=== PATIENT | male | born 1960 | race Caucasian/White ===

== ENCOUNTER 2021-02-22 13:14 | Emergency (ER) | payer OTHER, SELFPAY ==
[2021-02-22 13:25] VITALS: BP 140/87; PULSE 71; RESP 16; TEMP 36.7; O2SAT 98
[2021-02-22 13:32] VITALS: BP 140/87; PULSE 71; RESP 16; TEMP 36.7; O2SAT 98
--- NOTE | 2021-02-22 13:34 | ED.WOUNDLAC ---
HPI - Wound/Laceration General Chief Complaint: Wound/Laceration Stated Complaint: cut right thumb Time Seen by Provider: 02/22/21 13:35 Source: patient and RN notes reviewed Mode of arrival: ambulatory Limitations: no limitations History of Present Illness HPI narrative: 60-year-old male presents with concern for puncture wound to the first digit of the right hand that he sustained an hour and a half ago at work on a metal wire. He reports small amount of bleeding, reports of bleeding is now well controlled. He denies any numbness, tingling, swelling, redness, pain. Reports he is not up-to-date on his tetanus vaccination. Extremity Location: Right: hand Related Data Home Medications Medication Instructions Recorded Confirmed No Home Medications 02/22/21 02/22/21 Allergies Allergy/AdvReac Type Severity Reaction Status Date / Time No Known Allergies Allergy Mild Unverified 01/25/04 11:07 Review of Systems Review of Systems: CONSTITUTIONAL: Denies malaise, chills, sweats, or fever. SKIN: Reports puncture wound to the first digit of the right hand MUSCULOSKELETAL: Denies muscle skeletal pain NEUROLOGIC: Denies numbness, weakness, All systems reviewed & are unremarkable except as noted in HPI and below PMFSH Comments At time of signature, agree with nursing past medical, surgical, social and family history. There is no relevant family history pertinent to the presenting complaint Exam Narrative: GENERAL: Well-appearing, well-nourished, and in no acute distress. HEAD: Normocephalic, atraumatic. EYES: PERRLA, conjunctivae clear ENT: Mucous membranes moist. NECK: Supple. No lymphadenopathy CHEST: Clear to auscultation. No respiratory distress. HEART: Regular rate and rhythm. SKIN: Warm, dry. No visible puncture wound noted to the right first digit, small amount of dried blood noted. NEURO: Alert and oriented x3. PSYCH: Normal mood and affect Course Course Emergency Course: Patient is aware of diagnosis, understands and agrees to treatment plan. Anticipatory guidance given. Patient agrees to follow-up as directed and is aware of reasons to seek care at the emergency department. Portions of this record may have been created with voice recognition software Vital Signs Vital signs: Vital Signs Temperature 98.0 F 02/22/21 13:25 Pulse Rate 71 02/22/21 13:25 Respiratory Rate 16 02/22/21 13:25 Blood Pressure 140/87 02/22/21 13:25 Pulse Oximetry 98 02/22/21 13:25 Temperature 98.0 F 02/22/21 13:32 Pulse Rate 71 02/22/21 13:32 Respiratory Rate 16 02/22/21 13:32 Blood Pressure 140/87 02/22/21 13:32 Pulse Oximetry 98 02/22/21 13:32 Reviewed. Pt has been instructed to follow up with his primary care provider within the next week regarding his elevated blood pressure today. MDM - Wound/Laceration MDM Narrative Medical decision making narrative: Exam findings show no acute concerns or changes; patient is non-toxic appearing and is in no distress. Patient is appropriate for outpatient treatment and follow-up. Differential Diagnosis Differential diagnosis: Likely laceration, abrasion, avulsion of skin and other Critical Care Time Critical Care Time Critical Care Time: No Discharge Plan Discharge Clinical Impression: Puncture wound Patient Disposition: Home, Self-Care Condition: Stable Instructions: Antibiotic Form, Puncture Wound (ED) Additional Instructions: Keep wound clean, and dry. Apply antibiotic ointment twice daily. Cover with bandage as needed to prevent contamination. Clean with soap and water twice daily. Do not clean with hydrogen peroxide. If any signs of infection such as redness, swelling, increasing pain, drainage of purulent discharge, streaks up your extremity develop, seek medical attention immediately. Your blood pressure was elevated above 120/80 today at [facility]. This puts you above the threshold for follow up. Please schedule a follow
[2021-02-22] MEDS: TETANUS,DIPHTHERIA,AC PERTUSSIS ADULT (0.5 ML) BOOSTRIX IM (13:46)
== END 2021-02-22 13:55 | disposition home or self-care (01) ==
PROVIDERS: Emergency Provider Nurse Practitioner
DX: S61.031A Puncture wound without foreign body of right thumb without damage to nail, initial encounter (principal); W45.8XXA Other foreign body or object entering through skin, initial encounter; Z23 Encounter for immunization
CPT/HCPCS: 90471; 90715; 99212; G0463

== ENCOUNTER 2023-06-27 08:04 | Emergency (ER) | payer BC, SELFPAY ==
--- NOTE | 2023-06-27 08:09 | ED.GENADULT ---
HPI - General Adult General Chief complaint: Shortness of Breath/Dyspnea Stated complaint: SOB Source: patient, RN notes reviewed and old records reviewed Mode of arrival: ambulatory Limitations: no limitations History of Present Illness HPI narrative: 62-year-old male patient presents to [facility] with complaint of shortness of breath for about 1 week. Patient states shortness breath is worse with exertion. Patient denies cough, congestion, illness. Patient states has had some chest tightness on and off for the past week. Patient has not taken anything for symptoms. Patient does not have primary care physician. MD complaint: SOB Onset (ago): week(s) (1) Related Data Home Medications Medication Instructions Recorded Confirmed No Home Medications 02/22/21 06/27/23 Allergies Allergy/AdvReac Type Severity Reaction Status Date / Time No Known Allergies Allergy Mild Verified 06/27/23 08:06 Review of Systems Constitutional: Constitutional: Reports no additional constitutional complaints, Denies body ache(s), Denies chills, Denies fatigue, Denies fever(s) and Denies headache(s) Eyes: Eyes: Reports no additional eye complaints and Denies blurry vision ENT: Reports system reviewed and no additional complaints, except as documented, Denies vertigo, Denies dizziness, Denies ear discharge, Denies otalgia, Denies facial pain, Denies headache(s), Denies nasal congestion, Denies nasal discharge, Denies sinus pain, Denies sinus pressure and Denies sore throat Cardiovascular: Cardiovascular: Reports no additional cardiovascular complaints, Denies chest pain, Denies chest pain at rest, Denies rapid heart rate and Reports dyspnea Comments: Chest tightness on and off for 1 week Respiratory: Respiratory: Reports no additional respiratory complaints, Denies chest congestion, Denies cough, Denies pain on inspiration, Denies pain with cough, Reports dyspnea and Reports dyspnea on exertion Gastrointestinal: Gastrointestinal: Denies abdominal pain, Denies diarrhea, Denies nausea and Denies vomiting Integumentary/Breasts: Skin/Breast: Denies rash Neurologic: Reports system reviewed and no additional complaints, except as documented, Denies vertigo, Denies dizziness and Denies headache(s) Endocrine: Endocrine: Denies fatigue PMFSH Comments At the time of my signature, I reviewed and agree with the nursing past medical, surgical, social, and family history. There is no relevant family history pertinent to the patient complaint. Exam Const: General: cooperative, healthy appearing, no acute distress and well nourished Nutritional Appearance: well nourished Orientation/consciousness: patient oriented x3 Limitations: no limitations HENMT: Head: normal to inspection and normocephalic Ears: external ears normal, TM's normal bilaterally, mastoids normal and Abnormal EAC present Face/Nose/Sinus: normal facial exam Face and sinus: normal facial exam Mouth: Yes Normal oral and palatal mucosa present, Yes oropharynx normal and Yes moist mucous membranes Throat: posterior oropharynx normal, tonsils normal, uvula midline and no uvular edema Eyes: General: appearance normal, both eyes and all related structures Sclera: sclerae normal Pupils: Equal, round and reactive pupils present Resp: Effort & Inspection: normal respiratory effort, able to speak in complete sentences, no audible wheezes, no cough, not labored, no pursed lip breathing, no respiratory distress, no retractions and not tachypneic Auscultation: clear to auscultation bilaterally, no crackles, no rales, no rhonchi and no wheezes Cardio: Rate: tachycardic Rhythm: abnormal rhythm irregularly irregular Skin: General skin exam: normal color and no rashes or lesions noted Neuro: General: patient oriented x3 Cranial nerves: Yes Equal, round and reactive pupils present Psych: Appearance: grossly normal Mental Status: mental status grossly normal Speech and movement: Normal s
[2023-06-27 08:19] VITALS: BP 129/102; PULSE 85; RESP 20; TEMP 36.6; O2SAT 100
[2023-06-27 08:22] VITALS: PULSE 147; RESP 24
--- NOTE | 2023-06-27 08:24 | ECG_ITS ---
Measurements Intervals [place] Rate: 153 P: TN: 0 QRS: 85 QRSD: 83 T: 240 QT: 296 QTc: 473 Interpretive Statements ATRIAL FIBRILLATION WITH RAPID VENTRICULAR RESPONSE VENTRICULAR PREMATURE COMPLEX CANNOT RULE OUT SEPTAL INFARCT, AGE INDETERMINATE T WAVE ABNORMALITY IN LATERAL LEADS- CONSIDER ISCHEMIA BASELINE ARTIFACT- I, II, III, AVR, AVL, AVF ABNORMAL ECG NO PREVIOUS ECG AVAILABLE FOR COMPARISON Electronically Signed On 06-27-2023 12:55:35 ENROBING MACHINE FEEDER by Beni Puentes D.O.
== END 2023-06-27 08:42 | disposition short-term general hospital (02) ==
PROVIDERS: Emergency Provider Registered Nurse
DX: I48.91 Unspecified atrial fibrillation (principal); R06.02 Shortness of breath; Z20.822 Contact with and (suspected) exposure to COVID-19; Z87.891 Personal history of nicotine dependence
CPT/HCPCS: 87426; 87804; 93005; 99215; G0463

== ENCOUNTER 2023-06-27 09:03 | Inpatient (IN) | payer BC, SELFPAY ==
[2023-06-27] VITALS (16 sets, daily range): BP systolic 106–125; BP diastolic 73–98; PULSE 106–174; RESP 16–18; TEMP 36.3–36.8; O2SAT 90–98; BMI 27.6
--- NOTE | ~2023-06-27 | XR_ITS ---
Portable chest x-ray Comparison: 01/25/2004 Clinical History: Dyspnea Findings: Lungs are clear, without focal consolidation or pleural effusion. Cardiomediastinal silho uette is stable. Bones and soft tissues are unremarkable. Impression: Clear lungs. Reviewed, dictated and finalized at location . THCARE NETWORK PRICING CONSULTANT Impression: Clear lungs.
--- NOTE | ~2023-06-27 | US_ITS ---
EXAMINATION: US venous doppler [facility] DATE: 06/27/2023 19:10 INDICATION: Chest pain. TECHNIQUE: Grayscale ultrasound images without and with compression and Doppler ultrasound images of the bilateral lower extremity veins were obtained. COMPARISON: None. FINDINGS: The visualized portions of right common femoral vein, profunda (deep) femoral vein, femoral vein, pop liteal vein, peroneal veins, posterior tibial veins, and greater saphenous vein outflow are patent. The visualized portions of left common femoral vein, profunda femoral vein, femoral vein, popliteal v ein, peroneal veins, posterior tibial veins, and greater saphenous vein outflow are patent. IMPRESSION: 1. No deep venous thrombosis. Reviewed, dictated and finalized at location E. DHOUSE SUPERVISOR
--- NOTE | ~2023-06-27 | CT_ITS ---
EXAMINATION: CTA chest PE abdomen pel DATE: 06/27/2023 10:23 INDICATION: Chest pain, shortness of breath, elevated d-dimer. TECHNIQUE: Computed tomography (CT) pulmonary angiogram of the chest was performed with 100 mL Omnipa que-350 intravenous contrast. Additional 3D reconstructions utilizing coronal maximum intensity proje ction (MIP) were performed. CT of the abdomen and pelvis was performed with intravenous contrast util izing the same contrast bolus following a short delay. Automated exposure control and iterative recon struction technique were employed. The dose-length product was 828.52 mGy-cm. COMPARISON: None FINDINGS: Chest: No pulmonary embolism. Small bilateral pleural effusions with dependent atelectasis in bilateral lowe r lobes. Mild smooth septal line thickening at the bilateral lung bases consistent with minimal pulmo nary edema. Borderline heart size. No pericardial effusion. Thoracic aorta is normal in caliber. No p athologically enlarged thoracic lymphadenopathy. There is reflux of contrast into the inferior vena c rashid and hepatic veins consistent with tricuspid regurgitation. Moderate thoracic spondylosis with chr onic appearing minimal to mild anterior wedging of a few mid to lower thoracic vertebral bodies. Abdomen/pelvis: Focal hepatic steatosis at the ligamentum teres. Gallbladder, spleen, pancreas, bilateral adrenal gla nds and right kidney are normal. Small focus of cortical scarring at the upper pole of the left kidne y likely sequela prior infection or infarction. Bowels including the appendix are normal. Bladder is normal. Prostatomegaly. No free intraperitoneal gas or fluid. No pathologically enlarged abdominal or pelvic lymphadenopathy. Postoperative change of bilateral inguinal hernia repairs. Mild lumbar dextr ocurvature with moderate spondylosis. Mild to moderate bilateral hip osteoarthritis. IMPRESSION: 1. No pulmonary embolism. 2. Minimal bibasilar pulmonary edema and small bilateral pleural effusions. 3. Borderline heart size with reflux of contrast into the inferior vena cava and hepatic veins consis tent with tricuspid regurgitation. 4. No acute intra-abdominal/pelvic process. Reviewed, dictated and finalized at location A. RTER OR EXPORTER IMPRESSION: 1. No pulmonary embolism. 2. Minimal bibasilar pulmonary edema and small bilateral pleural effusions. 3. Borderline heart size with reflux of contrast into the inferior vena cava an d hepatic veins consistent with tricuspid regurgitation. 4. No acute intra-abdominal/pelvic process.
--- NOTE | 2023-06-27 09:06 | ECG_ITS ---
Measurements Intervals [place] Rate: 165 P: TN: 0 QRS: 64 QRSD: 89 T: 180 QT: 275 QTc: 456 Interpretive Statements ATRIAL FIBRILLATION WITH RAPID VENTRICULAR RESPONSE VENTRICULAR PREMATURE COMPLEXES CANNOT RULE OUT SEPTAL INFARCT, AGE INDETERMINATE ST-T WAVE ABNORMALITY IN LATERAL LEADS- CONSIDER ISCHEMIA ABNORMAL ECG NO PREVIOUS ECG AVAILABLE FOR COMPARISON Electronically Signed On 06-27-2023 9:40:57 TELECOMMUNICATIONS NETWORK ENGINEER by Beni Puentes D.O.
--- NOTE | 2023-06-27 09:13 | ED.SOB ---
HPI - SOB/Dyspnea General Chief Complaint: Shortness of Breath/Dyspnea <Stacia Block PA-C - Last Filed: 06/27/23 12:53> Stated Complaint: sob <KUSH Moore Last Filed: 06/27/23 12:53> Time Seen by Provider: 06/27/23 09:06 <KUSH Moore Last Filed: 06/27/23 12:53> Source: patient <KUSH Moore Last Filed: 06/27/23 12:53> Mode of arrival: EMS <KUSH Moore Last Filed: 06/27/23 12:53> Limitations: no limitations <KUSH Moore Last Filed: 06/27/23 12:53> History of Present Illness HPI Narrative: This is a 62-year-old male that presents to the emergency department for dyspnea ongoing over the last week. Worse with exertion. Does report intermittent chest tightness. He was seen in urgent care and sent to the ER for further evaluation as he was noted to be in atrial fibrillation with rapid ventricular rate. This is a new diagnosis for the patient. Denies palpitations or lower extremity edema. <KUSH Moore Last Filed: 06/27/23 12:53> Related Data Home Medications: Home Medications Medication Instructions Recorded Confirmed No Home Medications 02/22/21 06/27/23 <KUSH Moore Last Filed: 06/27/23 12:53> Allergies/Adverse Reactions: Allergies Allergy/AdvReac Type Severity Reaction Status Date / Time No Known Allergies Allergy Mild Verified 06/27/23 08:06 <KUSH Moore Last Filed: 06/27/23 12:53> Review of Systems Review of Systems: CONSTITUTIONAL: Denies fever CARDIOVASCULAR: Reports chest pain. Denies palpitations, or edema. RESPIRATORY: Reports dyspnea. <KUSH Moore Last Filed: 06/27/23 12:53> All systems reviewed & are unremarkable except as noted in HPI and below <KUSH Moore Last Filed: 06/27/23 12:53> PMFSH Past Medical History Medical History: Medical History No active medical problems <Stacia Block PA-C - Last Filed: 06/27/23 12:53> Family History Family History: Family History Father Diabetes mellitus <Stacia Block PA-C - Last Filed: 06/27/23 12:53> Social History Social History: Social History Smoking packs per day: 1 Smoking cigarettes per day: 20.0 Years smoked: 20 Smoking pack-years: 20.00 Smoking status: Former smoker Alcohol intake: former Substance use: former Substance use type: marijuana Last use: 04/25/23 Do You Feel Safe in your Home?: Yes Lack of Transportation: No Lack of Food: Never True Current Housing: I Have Housing Concerned About Future Housing: No Difficulty Paying Gas/Electric Bills: No Difficulty Paying for Meds: No Currently Unemployed: No Education: High School Diploma/GED Difficulty w/ Childcare or Family Care: No Spiritual care concerns: No <Stacia Block PA-C - Last Filed: 06/27/23 12:53> Exam Narrative: GENERAL: Well-appearing, well-nourished, and in no acute distress. HEAD: Normocephalic, atraumatic. EYES: EOMI. ENT: Mucous membranes moist. Oropharynx without tonsillar hypertrophy exudate or other lesions. NECK: Supple. No adenopathy or masses. No JVD CHEST: Clear to auscultation. No respiratory distress. No wheezes rales or rhonchi HEART: Tachycardic. No murmur heard. Normal peripheral pulses. EXTREMITIES: Normal range of motion. No edema. SKIN: Warm, dry, no rash. NEURO: No focal deficits. Alert and oriented x3. PSYCH: Normal mood and affect <Stacia Block PA-C - Last Filed: 06/27/23 12:53> Course Course Emergency Course: Patient updated on his workup and agrees with plan of care <Stacia Block PA-C - Last Filed: 06/27/23 12:53> PRIMING MACHINE OPERATOR/PA Physician Supervision This visit was performed by both a physician and an APC. I perfor
[2023-06-27 09:25] LABS: Basophils Percent Auto 0.4 % (0.2-1.2); Eosinophils Percent Auto 0.4 % (0-4.4); Hematocrit 43.5 % (42.0-52.0); Hemoglobin 14.4 g/dL (14.0-18.0); Immature Granulocyte Absolute 0.03 K/mm3 (0.00-0.031); Immature Granulocyte Percent A 0.3 % (0-0.5); Lymphocytes Absolute Auto 2.89 K/mm3 (0.9-3.2); Lymphocytes Percent Auto 26.4 % (18.3-44.2); Mean Corpuscular HGB Conc 33.1 g/dl (32-36); Mean Corpuscular Hemoglobin 29.7 pg (26-34); Mean Corpuscular Volume 89.7 fl (80-100); Mean Platelet Volume 9.7 fl (7.4-10.4); Monocytes Absolute Auto 0.7 K/mm3 (0.1-0.6); Monocytes Percent Auto 6.2 % (2.6-8.5); Neutrophils Absolute Auto 7.3 K/mm3 (1.3-6.7); Neutrophils Percent Auto 66.3 % (45.5-73.1); Platelet Count Result 247 k/mm3 (150-375); Red Blood Count 4.85 M/mm3 (4.6-6.20); Red Cell Distribution Width 13.9 % (11.5-14.5)
[2023-06-27] MEDS: dilTIAZem HCl INJ 25 MG/5 ML VIAL 10 MG IV PUSH (09:26)
[2023-06-27] MEDS: dilTIAZem 100 MG/100 ML 100 MG/100 ML BAG IV CONT (09:27)
[2023-06-27 09:33] LABS: Alanine Aminotransferase 49 U/L (6-50); Albumin Level 3.8 g/dL (3.5-5.1); Alkaline Phosphatase 50 U/L (38-126); Anion Gap 11 mmol/L (8-16); Aspartate Amino Transferase 38 U/L (17-59); Blood Urea Nitrogen 22 mg/dL (9-20); Calcium 8.9 mg/dL (8.4-10.2); Carbon Dioxide 17 mmol/L (22-30); Chloride 110 mmol/L (98-107); Estimated CRCL calculation 65 ml/min; Estimated Glomerular Filt Rate > 60; Glucose 126 mg/dL (65-110); Potassium 4.5 mmol/L (3.4-5.0); Sodium 138 mmol/L (137-145)
[2023-06-27 09:36] LABS: INR 1.2; Prothrombin Time 15.8 Seconds (11.1-14.7)
[2023-06-27 09:37] LABS: Partial Thromboplastin Time 28.8 SECONDS (22.3-36.8)
[2023-06-27 09:48] LABS: Troponin I 0.705 ng/mL (0.000-0.034)
[2023-06-27 09:55] LABS: D Dimer > 20.00 ug/mL (<0.48)
[2023-06-27 11:45] LABS: NT Pro B Type Natriuretic Pept 6630 pg/mL (19.9-100)
--- NOTE | 2023-06-27 12:20 | ECHO_ITS ---
Patient Info Name: David Bingham Age: 62 years : 1960 Gender: Male Ht: 71 in Wt: 180 lbs BSA: 2.03 m2 HR: 126 bpm BP: 106 / 79 mmHg Heart Rhythm: Indeterminant Technical Quality: Good Exam Date: 06/27/2023 2:06 PM Exam Location: Echo Lab Patient Status: Outpatient Admit Date: 06/27/2023 Staff Ordering Physician: Stacia Block PA-C Drafter Plumbing: Reba Rodriguez RDCS Attending Provider: Madonna Jones MD Referring Physician: Umair SULLIVAN; Exam Type: CA echo doppler color flow Study Info Indications - ATRIAL FIB Complete two-dimensional, color flow and Doppler transthoracic echocardiogram is performed. Summary 1. Complete two-dimensional, color flow and Doppler transthoracic echocardiogram is performed. 2. Left ventricular chamber dimension is severely enlarged. 3. Left ventricular systolic function is severely reduced, estimated at 15-20%. 4. There is mildly increased left ventricular wall thickness. 5. The left ventricular diastolic function is abnormal. 6. Right ventricular chamber dimension is mildly enlarged. 7. Right ventricular systolic function is reduced. 8. Left atrial chamber dimension is severely enlarged. 9. Right atrial chamber dimension is moderately enlarged. 10. There is mild mitral valve regurgitation. 11. There is mild tricuspid valve regurgitation. 12. Mild pulmonary hypertension, estimated pulmonary arterial systolic pressure is 42 mmHg. 13. There is mild pulmonic regurgitation. Left Ventricle Left ventricular chamber dimension is severely enlarged. Left ventricular systolic function is severely reduced, estimated at 15-20%. There is mildly increased left ventricular wall thickness. The left ventricular diastolic function is abnormal. Right Ventricle Right ventricular chamber dimension is mildly enlarged. Right ventricular systolic function is reduced. Left Atria Left atrial chamber dimension is severely enlarged. Right Atria Right atrial chamber dimension is moderately enlarged. Atrial Septum Intact interatrial septum visualized by color flow imaging. Aortic Valve The aortic valve is trileaflet. There is mild aortic valve sclerosis. There is no aortic valve stenosis. There is trace aortic valve regurgitation. Pulmonic Valve The pulmonic valve is normal. There is no pulmonic valve stenosis. There is mild pulmonic regurgitation. Mitral Valve The mitral valve has normal leaflets. There is no mitral valve stenosis. There is mild mitral valve regurgitation. Tricuspid Valve The tricuspid valve leaflets are normal. There is no significant tricuspid valve stenosis. There is mild tricuspid valve regurgitation. Mild pulmonary hypertension, estimated pulmonary arterial systolic pressure is 42 mmHg. Pericardium/Pleural The pericardium appears normal. There is trivial pericardial effusion. Inferior Vena Cava Dilated inferior vena cava with <50% collapse upon inspiration consistent with elevated right atrial pressure, 15 mmHg. Aorta The aortic root size at the sinus of Valsalva is mildly dilated. Left Ventricular Outflow Tract Name Value Normal LVOT 2D LVOT Diameter 2.1 cm LVOT Doppler LVOT Peak Gradient 3 mmHg
--- NOTE | 2023-06-27 12:20 | PM.IMHP ---
H&P: HPI History of Present Illness Date/Time: 06/27/23 12:20 Chief Complaint: SOB Narrative: 62 y/o M presents here with SOB and intermittent chest discomfort with no PMH. Patient presented here with SOB that worsened with exertion and would be alleviated with rest. Started approximately 10 days ago. Initially was mild and he first noted it while he was loading firewood, then progressed to effecting activities like bending over to tie his shoes. Associated chest discomfort intermittently, not as associated with activity. Chest discomfort was left-sided, non-radiating, and not associated N/V/diaphoresis. Patient started taking cough and cold medication to treat, initially believed symptoms were due to a viral illness, and symptoms did not improve/resolve. Denies any palpitations, syncope, or rapid heart beat. No prepherial edema, abdomninal distention, or recent weight gain. No previous medical history or daily medications. No FH of genetic disorders, cancers, or early heart disease. Former smoker (cessation 15 years ago). ETOH: former use was heavy, now drinks a beer every 3 months or so. Initial VS: HR 147, RR 24, BP 129/102, 100% on room air, and afebrile. ED workup showed mild leukocytosis with WBC of 11.0, PT 15.8, D-dimer greater than 20, creatinine 0.0 troponin 0.705, BNP 6630, and negative for COVID. CXR showed clear lungs. CTA of the chest/abdomen/pelvis showed no PE, minimal bibasilar pulmonary edema and small bilateral pleural effusions borderline heart size with reflux contrast into the IVC and hepatic veins consistent tricuspid regurgitation, no acute intra-abdominal/ pelvic process. EKG shows AFib RVR with rate of 165 and ventricular premature complexes upon arrival. Review of Systems Review of Systems: All systems reviewed & are unremarkable except as noted in HPI and below PMFSH Past Medical History Medical History No active medical problems Family History Family History Father Diabetes mellitus Social History Social History Smoking packs per day: 1 Smoking cigarettes per day: 20.0 Years smoked: 20 Smoking pack-years: 20.00 Smoking status: Former smoker Alcohol intake: former Substance use: former Substance use type: marijuana Last use: 04/25/23 Do You Feel Safe in your Home?: Yes Lack of Transportation: No Lack of Food: Never True Current Housing: I Have Housing Concerned About Future Housing: No Difficulty Paying Gas/Electric Bills: No Difficulty Paying for Meds: No Currently Unemployed: No Education: High School Diploma/GED Difficulty w/ Childcare or Family Care: No Spiritual care concerns: No Meds Home Medications and Allergies Home Medications Medication Instructions Recorded Confirmed Type No Home Medications 02/22/21 06/27/23 History Allergies Allergy/AdvReac Type Severity Reaction Status Date / Time No Known Allergies Allergy Mild Verified 06/27/23 08:06 Vital Signs Vital Signs - 24 hr 06/27/23 09:03 06/27/23 09:27 06/27/23 10:36 Temperature 98.2 F Pulse Rate 174 H 153 H 126 H Respiratory Rate 17 18 Blood Pressure 117/98 H 117/98 H 106/79 Pulse Oximetry 95 96 Oxygen Delivery Room Air Exam Const: General: comfortable and no acute distress Other: non-toxic appearance, , male. HENMT: Face/Nose/Sinus: Normal nares present Mouth: Yes moist mucous membranes Eyes: General: appearance normal, both eyes and all related structures Sclera: sclerae normal Pupils: Equal, round and reactive pupils present EOM: EOMs intact bilaterally Other: 2-3 mm bilaterally. Resp: Effort & Inspection: normal respiratory effort Other: crackles at R lung base. No wheezing or accessory muscle use. Cardio: Rate: tachycardic Rhythm: abnormal
[2023-06-27 12:59] LABS: Troponin I 0.686 ng/mL (0.000-0.034)
--- NOTE | 2023-06-27 13:37 | ADMGEN ---
This patient, David Bingham, was admitted to IMU Room 205-02. Patient/family oriented to hospital policies and general routines including ID bracelet, bed and alarms, visiting hours, pain management, procedures, bathroom and other care routines, personal items, smoking policy, room service/diet, and visiting hours. Information on how to activate the Rapid Response Team has been discussed. Patient/Family are encouraged to report perceived risks to care and to ask questions if they do not understand what they are told or what they should do.
[2023-06-27] MEDS: dilTIAZem HCl INJ 25 MG/5 ML VIAL 20 MG IV PUSH (14:03)
[2023-06-27] MEDS: dilTIAZem 100 MG/100 ML 100 MG/100 ML BAG 10 MG IV CONT (14:04)
--- NOTE | 2023-06-27 14:43 | PM.CNCAR ---
Assessment and Plan Assessment and plan (1) Atrial fibrillation with RVR: Code(s): I48.91 - Unspecified atrial fibrillation Status: Acute Assessment and Plan: This is a new diagnosis. I discussed the pathophysiology of atrial fibrillation and management strategies including rate control versus rhythm control. Discussed potential complications of atrial fibrillation including cardioembolic stroke risk. After discussing management options, patient would like to proceed with JUAN/CV tomorrow. 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 Will start Xarelto now. If he spontaneously converts, he would not require a/c as he has a CHADs2 Vasc score of 0. Echo has been ordered and will be reviewed. Further recommendations to follow (2) Exertional shortness of breath: Code(s): R06.02 - Shortness of breath Status: Acute Assessment and Plan: Secondary to above. He does have an elevated D dimer, but CTA negative for PE. Will check LE dopplers. (3) Elevated troponin: Code(s): R79.89 - Other specified abnormal findings of blood chemistry Status: Acute Assessment and Plan: Troponin levels 0.705, 0.686, and 0.680. Likely secondary to tachycardia, but cannot rule out underlying CAD. No plan for ischemia work up currently - await results of echo. If he has WMA or cardiomyopathy, then can consider inpatient ischemic eval. History of Present Illness History of Present Illness Consult date/time: 06/27/23 14:43 Requesting physician: Gladis Hood APRN Consult reason: atrial fibrillation Reason For Visit: atrial fibrillation with rapid ventricular respons Narrative: David Bingham is a 62-year-old male with no medical history. He comes to the hospital with a chief complaint of shortness of breath. He began to notice some shortness of breath with exertion starting about 10 days ago. The shortness of breath progressively got worse. He states that he could not even bend over to put his shoes on without becoming significantly short of breath. He did have some chest tightness associated with shortness of breath. He denies feeling any palpitations. He denies orthopnea, lower extremity swelling, syncope, or presyncope. He is in atrial fibrillation with rapid ventricular response and has been placed on a diltiazem drip. At the time of my visit with him he is lying comfortably in bed does not have any complaints. Review of Systems Review of Systems: All systems reviewed & are unremarkable except as noted in HPI and below PMFSH Past Medical History Medical History No active medical problems Family History Family History Father Diabetes mellitus Social History Social History Smoking packs per day: 1 Smoking cigarettes per day: 20.0 Years smoked: 20 Smoking pack-years: 20.00 Smoking status: Former smoker Alcohol intake: former Substance use: former Substance use type: marijuana Last use: 04/25/23 Do You Feel Safe in your Home?: Yes Lack of Transportation: No Lack of Food: Never True Current Housing: I Have Housing Concerned About Future Housing: No Difficulty Paying Gas/Electric Bills: No Difficulty Paying for Meds: No Currently Unemployed: No Education: High School Diploma/GED Difficulty w/ Childcare or Family Care: No Spiritual care concerns: No Meds Home Medications and Allergies Home Medications Medication Instructions Recorded Confirmed Type No Home Medications 02/22/21 06/27/23 History Allergies Allergy/AdvReac Type Severity Reaction Status Date / Time No Known Allergies Allergy Mild Verified 06/27/23 08:06 Vital Signs Vital Signs - 24 hr 06/27/23 09:03 06/27/23 09:27
[2023-06-27] MEDS: RIVAROXABAN 20 MG TABLET PO (17:23)
[2023-06-27] MEDS: dilTIAZem 100 MG/100 ML 100 MG/100 ML BAG 15 MG IV CONT (22:31)
[2023-06-28] VITALS (23 sets, daily range): BP systolic 96–115; BP diastolic 74–96; PULSE 13–116; RESP 18–34; TEMP 35.5–36.9; O2SAT 91–97
[2023-06-28] MEDS: dilTIAZem 100 MG/100 ML 100 MG/100 ML BAG 15 MG IV CONT (02:48)
[2023-06-28 05:02] LABS: Basophils Percent Auto 0.4 % (0.2-1.2); Eosinophils Percent Auto 0.3 % (0-4.4); Hematocrit 41.8 % (42.0-52.0); Hemoglobin 13.5 g/dL (14.0-18.0); Immature Granulocyte Absolute 0.03 K/mm3 (0.00-0.031); Immature Granulocyte Percent A 0.3 % (0-0.5); Mean Corpuscular HGB Conc 32.3 g/dl (32-36); Mean Corpuscular Hemoglobin 29.7 pg (26-34); Mean Corpuscular Volume 91.9 fl (80-100); Mean Platelet Volume 10.1 fl (7.4-10.4); Monocytes Absolute Auto 0.7 K/mm3 (0.1-0.6); Monocytes Percent Auto 6.4 % (2.6-8.5); Neutrophils Absolute Auto 6.9 K/mm3 (1.3-6.7); Neutrophils Percent Auto 64.6 % (45.5-73.1); Platelet Count Result 234 k/mm3 (150-375); Red Blood Count 4.55 M/mm3 (4.6-6.20); White Blood Count 10.7 K/mm3 (4.5-10.0)
[2023-06-28 05:44] LABS: Hemoglobin A1C 5.8 % (<5.7)
[2023-06-28 06:16] LABS: Anion Gap 10 mmol/L (8-16); Blood Urea Nitrogen 22 mg/dL (9-20); Calcium 8.8 mg/dL (8.4-10.2); Carbon Dioxide 19 mmol/L (22-30); Chloride 109 mmol/L (98-107); Cholesterol 129 mg/dL (0-200); Estimated CRCL calculation 72 ml/min; Estimated Glomerular Filt Rate > 60; Glucose 104 mg/dL (65-110); HDL Direct 33 mg/dL; Potassium 4.3 mmol/L (3.4-5.0); Sodium 138 mmol/L (137-145); Triglycerides 106 mg/dL (<150)
[2023-06-28 06:25] LABS: LDL Cholesterol Direct 83 mg/dL
--- NOTE | 2023-06-28 08:51 | ECG_ITS ---
Measurements Intervals [place] Rate: 95 P: NE: 0 QRS: 28 QRSD: 88 T: 211 QT: 395 QTc: 499 Interpretive Statements ATRIAL FIBRILLATION CANNOT RULE OUT SEPTAL INFARCT, AGE INDETERMINATE T WAVE ABNORMALITY IN ANTEROLATERAL LEADS- CONSIDER ISCHEMIA ABNORMAL ECG COMPARED TO ECG 06/27/2023 09:10:57 HEART RATE HAS DECREASED Electronically Signed On 06-28-2023 8:58:33 INVENTORY MANAGEMENT SPECIALIST by Beni Puentes D.O.
--- NOTE | 2023-06-28 09:00 | ECHO_ITS ---
Patient Info Name: David Bingham Age: 62 years : 1960 Gender: Male Ht: 68 in Wt: 181 lbs BSA: 2.00 m2 HR: 120 bpm BP: 121 / 89 mmHg Heart Rhythm: Atrial Fibrillation Technical Quality: Good Exam Date: 06/28/2023 9:14 AM Exam Location: Echo Lab Exam Room: IP ARCHITECT Patient Status: Outpatient Admit Date: 06/27/2023 Staff Ordering Physician: Stacey Traore Pool Attendant: Karissa Bullard RDCS Attending Provider: Madonna Jones MD Referring Physician: Eugenie JIMENEZ; Exam Type: CA echo transesophageal Study Info Indications - AFIB PRE CARDIOVERSION Complete two-dimensional, color flow and Doppler transesophageal study is performed. Summary 1. Limited JUAN done prior to a recommended cardioversion. 2. Dilated left atrium with large clot seen in left atrial appendage. 3. Normal appearing aortic and mitral valve. 4. Left ventricular dilation with severe global systolic dysfunction. Left Ventricle Left ventricular chamber dimension is mildly enlarged. Left ventricular systolic function is severely reduced with an ejection fraction by Biplane Method of Discs of Empty. Left Atria Left atrial chamber dimension is moderately enlarged. There is sessile thrombus visualized in the left atrium. Atrial Appendage There is sessile thrombus visualized in the left atrial appendage. Aortic Valve The aortic valve is normal. Mitral Valve The mitral valve has normal leaflets. Report Signatures
--- NOTE | 2023-06-28 09:28 | WPDCARDPROC ---
Cardiac Cath Procedure Note Date of procedure:: 06/28/23 Performing physician:: Valdo Meyer MD Indication:: Recent onset atrial fibrillation cardiomyopathy Brief clinical history:: this is a 62-year-old man without prior significant cardiac problems who entered the hospital yesterday with shortness of breath and was found to be in atrial fibrillation. Symptoms began approximately 2 weeks prior to presentation. JUAN cardioversion has been seen recommended and scheduled for this morning. Unfortunately echocardiogram also demonstrates severe cardiomyopathy. Procedure Procedure performed:: Transesophageal echocardiogram Sedation/Medication given:: sedation per the Anesthesia Service Estimated blood loss:: none Procedure note:: patient was brought to the cardiac catheterization lab anesthesia recovery area where he was in the postabsorptive state and placed in the supine position. The anesthesia service provided sedation. Please see their note for those details. prior to sedation the oropharynx was sprayed with benzocaine. Following sedation the esophagus was intubated with JUAN probe. Multiplanar JUAN images were performed I examining the left atrium and the appendage. Following this the JUAN probe was withdrawn and the procedure was terminated. Findings:: The left atrium is moderately dilated. The atrium was inspected in the appendage there was a large amount of thrombus filling the entire appendage. The mitral valve is normal in appearance the left ventricle is mildly dilated with severe global systolic hypokinesia. The aortic valve looks normal. There was no pericardial fluid. Conclusion:: Transesophageal echocardiogram imaging done prior to anticipated cardioversion demonstrates obvious left atrial appendage thrombus resulting and contraindication to cardioversion today. Valdo Meyer MD [facility]
--- NOTE | 2023-06-28 09:31 | PM.PNCARD ---
Progress Note: A&P Assessment and Plan (1) Atrial fibrillation with RVR: Code(s): I48.91 - Unspecified atrial fibrillation Status: Acute Plan 62-year-old man with newly diagnosed cardiomyopathy and atrial fibrillation. Abhay this morning demonstrates obvious thrombus in the left atrial appendage. Xarelto will be continued for systemic anticoagulation. I will transition him from diltiazem to metoprolol for both rate control and for treatment of his cardiomyopathy. While he is in the hospital we should also be starting ARNI and spironolactone if hemodynamically stable enough. Attempted cardioversion needs to be delayed at least 4 weeks and performed as an outpatient after he has been anticoagulated. Valdo Meyer MD [facility] Subjective Date/time seen: date of service:06/28/23 09:31 Interval history: 62-year-old man with: Newly recognized atrial fib felt to be of recent onset. Also newly diagnosed cardiomyopathy by echo that was done yesterday. Patient is relatively comfortable today and offers no significant complaints IV diltiazem is running heart rate is in the 110 range. Transesophageal echocardiogram images were done this morning in anticipation of cardioversion. Unfortunately there is a very large thrombus in the left atrial appendage contraindicating any attempt at cardioversion at this time. Exam Const: General: comfortable HENMT: Mouth: Yes moist mucous membranes Eyes: Sclera: sclerae normal Neck: Neck: supple Resp: Effort & Inspection: normal respiratory effort Other: scant basilar crackles noted Cardio: Rate: tachycardic Rhythm: abnormal rhythm irregularly irregular GI: GI Palp: Yes Soft to palpation Auscultation: normal bowel sounds Skin: General skin exam: normal color Neuro: Other: alert and oriented x3 Extrem: Other: no edema, good perfusion Objective Data Vital Signs Vital Signs: Vital Signs - 24 hr 06/27/23 10:36 06/27/23 12:35 06/27/23 12:50 Temperature 36.3 C L Pulse Rate 126 H 128 H 124 H Respiratory Rate 18 16 Blood Pressure 106/79 110/87 Pulse Oximetry 96 96 Oxygen Delivery 06/27/23 14:04 06/27/23 13:00 06/27/23 16:42 Temperature 36.6 C Pulse Rate 138 H 106 H Respiratory Rate 18 Blood Pressure 125/95 H Pulse Oximetry 98 Oxygen Delivery Room Air 06/27/23 16:00 06/27/23 16:00 06/27/23 18:00 Temperature Pulse Rate 116 H 113 H Respiratory Rate Blood Pressure Pulse Oximetry Oxygen Delivery Room Air 06/27/23 13:00 06/27/23 20:42 06/27/23 22:07 Temperature 36.7 C Pulse Rate 126 H 121 H 132 H Respiratory Rate 18 Blood Pressure 115/73 Pulse Oximetry 91 Oxygen Delivery 06/27/23 20:00 06/27/23 22:00 06/27/23 23:20 Temperature 36.4 C Pulse Rate 116 H 123 H 110 H Respiratory Rate 18 Blood Pressure 106/88 Pulse Oximetry 90 Oxygen Delivery 06/27/23 22:31 06/28/23 02:48 06/28/23 00:00 Temperature Pulse Rate 121 H 96 Respiratory Rate Blood Pressure Pulse Oximetry Oxygen Delivery Room Air 06/28/23 00:00 06/28/23 02:00 06/28/23 04:00 Temperature Pulse Rate 94 91 Respiratory Rate Blood Pressure Pulse Oximetry Oxygen Delivery Room Air 06/28/23 04:41 06/28/23 04:00 06/28/23 06:00 Temperature 36.4 C L Pulse Rate 90 93 85 Respiratory Rate 18 Blood Pressure 101/74 Pulse Oximetry 95 Oxygen Delivery 06/28/23 08:11 Temperature 36.9 C Pulse Rate 94 Respiratory Rate 20 Blood Pressure 102/77 Pulse Oximetry 95 Oxygen Delivery Intake/Output Intake/Output: Intake & Output 06/25/23 06/26/23 06/27/23 06/28/23 23:59 23:59 23:59 23:59 Intake Total 880 650 Output Total 550 400 Balance 330 250 Meds/Results Medications: Active Medications Generic Name Dose Route Start Last Admin Trade Name Freq PRN Reason Stop Dose Admin Diltiazem HCl 100 mg in 100 mls @ 15 mls/hr
[2023-06-28] MEDS: METOPROLOL SUCCINATE EXT REL 50 MG TABCR PO (10:37)
--- NOTE | 2023-06-28 11:25 | PM.IMPN ---
Progress Note: A&P Assessment and Plan (1) Atrial fibrillation with RVR: Code(s): I48.91 - Unspecified atrial fibrillation Status: Acute (2) Exertional shortness of breath: Code(s): R06.02 - Shortness of breath Status: Inactive Plan Patient presented with shortness of breath and intermittent chest discomfort. Over the past week or so. Chest discomfort left-sided nonradiating not associated with nausea vomiting diaphoresis. In the ER he was noted to have tachycardia with heart rate of 147 D-dimer greater than 20 troponin 0.705 BNP 6600 30[place] [address] chest x-ray clear lung CTA chest abdomen pelvis showed no PE minimal by basilar pulmonary edema and small bilateral pleural effusion borderline heart size with reflux contrast into the IVC and hepatic veins consistent tricuspid regurgitation no acute intra-abdominal or pelvic process. EKG showed AFib with RVR with a rate of 165. Was started on diltiazem drip echo ordered chest Vasc score 0. Started on Lovenox cardiology was consulted and status post JUAN which demonstrated thrombus in the left atrial appendage. Also noted to have cardiomyopathy for which she is getting started on AR and I and spironolactone cardioversion that was originally planned will be delayed after at least 4 weeks of anticoagulation. Now has been placed on Xarelto and metoprolol. Serial cardiac enzymes 0.705-0.680 TSH is normal LDL 83. Echo with EF 15-20% mild pulmonary hypertension mild MR mild TR mild RI Subjective Date/time seen: 06/28/23 11:25 Interval history: Patient presented with shortness of breath and intermittent chest discomfort. Over the past week or so. Chest discomfort left-sided nonradiating not associated with nausea vomiting diaphoresis. In the ER he was noted to have tachycardia with heart rate of 147 D-dimer greater than 20 troponin 0.705 [place]NP 6600 30[place] [address] chest x-ray clear lung CTA chest abdomen pelvis showed no PE minimal by basilar pulmonary edema and small bilateral pleural effusion borderline heart size with reflux contrast into the IVC and hepatic veins consistent tricuspid regurgitation no acute intra-abdominal or pelvic process. EKG showed AFib with RVR with a rate of 165. Was started on diltiazem drip echo ordered chest Vasc score 0. Started on Lovenox cardiology was consulted and status post JUAN which demonstrated thrombus in the left atrial appendage. Also noted to have cardiomyopathy for which she is getting started on AR and I and spironolactone cardioversion that was originally planned will be delayed after at least 4 weeks of anticoagulation. Review of Systems Review of Systems: All systems reviewed & are unremarkable except as noted in HPI and below Exam Narrative: GENERAL: Well-appearing, well-nourished, and in no acute distress. HEAD: Normocephalic, atraumatic. EYES: EOMI. ENT: Mucous membranes moist NECK: Supple. No adenopathy or masses. No JVD CHEST: Coarse breath sound. No respiratory distress. No wheezes rales or rhonchi HEART: Mildly tachycardic. AFib rhythm no murmur heard. Normal peripheral pulses. EXTREMITIES: Normal range of motion. No edema. SKIN: Warm, dry, no rash. NEURO: No focal deficits. Alert and oriented x3. PSYCH: Normal mood and affect Objective Data Vital Signs Vital Signs: Vital Signs - 24 hr 06/27/23 12:35 06/27/23 12:50 06/27/23 14:04 Temperature 97.3 F L Pulse Rate 128 H 124 H 138 H Respiratory Rate 16 Blood Pressure 110/87 Pulse Oximetry 96 Oxygen Delivery Oxygen Flow Rate 06/27/23 13:00 06/27/23 16:42 06/27/23 16:00 Temperature 97.8 F Pulse Rate 106 H Respiratory Rate 18 Blood Pressure 125/95 H Pulse Oximetry 98 Oxygen Delivery Room Air Room Air Oxygen Flow Rate 06/27/23 16:00 06/27/23 18:00 06/27/23 13:00 Temperature Pulse Rate 116 H 113 H 126 H Respiratory Rate Blood Pressure Pulse Oximetry Oxygen Delivery Oxygen F
[2023-06-28] MEDS: RIVAROXABAN 20 MG TABLET PO (17:14)
[2023-06-28] MEDS: dilTIAZem 100 MG/100 ML 100 MG/100 ML BAG 10 MG IV CONT (18:14)
[2023-06-29] VITALS (15 sets, daily range): BP systolic 90–112; BP diastolic 70–83; PULSE 85–109; RESP 16–24; TEMP 36–36.8; O2SAT 92–99
[2023-06-29] MEDS: dilTIAZem 100 MG/100 ML 100 MG/100 ML BAG 10 MG IV CONT (02:32)
[2023-06-29 04:53] LABS: Basophils Absolute Auto 0.1 K/mm3 (0.0-0.1); Basophils Percent Auto 0.5 % (0.2-1.2); Eosinophils Absolute Auto 0.1 K/mm3 (0-0.3); Eosinophils Percent Auto 0.5 % (0-4.4); Hematocrit 41.4 % (42.0-52.0); Hemoglobin 13.5 g/dL (14.0-18.0); Immature Granulocyte Absolute 0.04 K/mm3 (0.00-0.031); Immature Granulocyte Percent A 0.4 % (0-0.5); Lymphocytes Absolute Auto 2.85 K/mm3 (0.9-3.2); Lymphocytes Percent Auto 28.6 % (18.3-44.2); Mean Corpuscular HGB Conc 32.6 g/dl (32-36); Mean Corpuscular Hemoglobin 29.8 pg (26-34); Mean Corpuscular Volume 91.4 fl (80-100); Mean Platelet Volume 10.5 fl (7.4-10.4); Monocytes Absolute Auto 0.7 K/mm3 (0.1-0.6); Monocytes Percent Auto 7.2 % (2.6-8.5); Neutrophils Absolute Auto 6.3 K/mm3 (1.3-6.7); Neutrophils Percent Auto 62.8 % (45.5-73.1); Platelet Count Result 220 k/mm3 (150-375); Red Blood Count 4.53 M/mm3 (4.6-6.20); Red Cell Distribution Width 14.1 % (11.5-14.5)
[2023-06-29 05:09] LABS: Alanine Aminotransferase 38 U/L (6-50); Albumin Level 3.6 g/dL (3.5-5.1); Alkaline Phosphatase 52 U/L (38-126); Anion Gap 9 mmol/L (8-16); Aspartate Amino Transferase 38 U/L (17-59); Blood Urea Nitrogen 25 mg/dL (9-20); Calcium 8.4 mg/dL (8.4-10.2); Carbon Dioxide 22 mmol/L (22-30); Chloride 108 mmol/L (98-107); Estimated CRCL calculation 72 ml/min; Estimated Glomerular Filt Rate > 60; Glucose 99 mg/dL (65-110); Potassium 4.1 mmol/L (3.4-5.0); Sodium 139 mmol/L (137-145)
[2023-06-29] MEDS: METOPROLOL SUCCINATE EXT REL 100 MG TABCR PO (10:05)
--- NOTE | 2023-06-29 13:47 | PM.PNCARD ---
Progress Note: A&P Assessment and Plan (1) Atrial fibrillation with RVR: Code(s): I48.91 - Unspecified atrial fibrillation Status: Acute Assessment and Plan: Heart rate suboptimally controlled on oral metoprolol alone thus far necessitating resumption of intravenous diltiazem. Need to avoid diltiazem as much as possible given LV dysfunction, however, was quite symptomatic with uncontrolled AFib with RVR. Toprol XL increased to 100 mg this morning with better heart rate control. Wean diltiazem infusion to 5 milligrams/hour then discontinue after 1 hour. Monitor heart rate control thereafter. Suspect will need to increase metoprolol to least 125 mg possibly 150 mg daily thereafter. Recommendation to follow. Continue systemic anticoagulation with Xarelto 20 mg daily for stroke risk reduction. (2) Cardiomyopathy: Code(s): I42.9 - Cardiomyopathy, unspecified Status: Acute Assessment and Plan: Severe LV systolic dysfunction EF 15-20% currently compensated symptomatic regarding LV dysfunction in atrial fibrillation. NYHA class 3 symptoms. Patient is not currently on diuretic therapy. He is not on guideline directed medical therapy the given intermittent relative hypotension management options may be limited. 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 Ischemic workup as an outpatient. Unable to achieve rhythm control due to left atrial appendage thrombus so rate control strategy must be employed. Plan for repeat JUAN guided cardioversion attempt after 4 weeks of systemic anticoagulation without interruption as discussed at length. Ideally, recommended addition of Entresto 12/13 mg twice daily as BP permits. (3) Thrombus of left atrial appendage: Code(s): I51.3 - Intracardiac thrombosis, not elsewhere classified Status: Acute Assessment and Plan: Continue systemic anticoagulation with Xarelto 20 mg daily without interruption. Unable to proceed with cardioversion as discussed above. We discussed the inherent stroke risk in this regard in the need for anticoagulation moving forward. (4) Elevated troponin: Code(s): R79.89 - Other specified abnormal findings of blood chemistry Status: Acute Assessment and Plan: Likely demand ischemia given LV dysfunction, atrial fibrillation with RVR. Cannot entirely exclude underlying CAD, ischemic workup as an outpatient. Subjective Date/time seen: Date of service: 06/29/23 13:47 Interval history: 62-year-old man with: Newly recognized atrial fib felt to be of recent onset. Also newly diagnosed cardiomyopathy by echo that was done yesterday. Patient is relatively comfortable today and offers no significant complaints IV diltiazem is running heart rate is in the 110 range. Transesophageal echocardiogram images were done this morning in anticipation of cardioversion. Unfortunately there is a very large thrombus in the left atrial appendage contraindicating any attempt at cardioversion at this time. Date of service 06/29/2023: Patient feeling better this morning. Had more shortness of breath with heart rate with AFib RVR more rapid 120 to 140s when diltiazem was discontinued. Upon re-initiation are better controlled symptoms significantly improved. He remains on IV diltiazem and oral metoprolol. Her rate better controlled. He still notes some exertional dyspnea but no dizziness, chest pain. Tolerating medications. Mother bedside. Discussed at great length. All questions answered to their satisfaction. Explained plan of care in detail. Review of Systems Review of Systems: All systems reviewed & are unremarkable except as noted in HPI and below Exam Const: General: comfortable, no acute distress, alert and awake Orientation/consciousness: patient oriented x3 HENMT: Head: normal to inspection Mouth: Yes moist mucous membranes Eyes: General: appearance normal, both eye
--- NOTE | 2023-06-29 14:21 | PM.IMPN ---
Progress Note: A&P Assessment and Plan (1) Atrial fibrillation with RVR: Code(s): I48.91 - Unspecified atrial fibrillation Status: Acute (2) Exertional shortness of breath: Code(s): R06.02 - Shortness of breath Status: Inactive Plan Patient presented with shortness of breath and intermittent chest discomfort. Over the past week or so. Chest discomfort left-sided nonradiating not associated with nausea vomiting diaphoresis. In the ER he was noted to have tachycardia with heart rate of 147 D-dimer greater than 20 troponin 0.705 BNP 6600 30[place] [address] chest x-ray clear lung CTA chest abdomen pelvis showed no PE minimal by basilar pulmonary edema and small bilateral pleural effusion borderline heart size with reflux contrast into the IVC and hepatic veins consistent tricuspid regurgitation no acute intra-abdominal or pelvic process. EKG showed AFib with RVR with a rate of 165. Was started on diltiazem drip echo ordered chest Vasc score 0. Started on Lovenox cardiology was consulted and status post JUAN which demonstrated thrombus in the left atrial appendage. Also noted to have cardiomyopathy for which she is getting started on AR and I and spironolactone cardioversion that was originally planned will be delayed after at least 4 weeks of anticoagulation. Now has been placed on Xarelto and metoprolol. Serial cardiac enzymes 0.705-0.680 TSH is normal LDL 83. Echo with EF 15-20% mild pulmonary hypertension mild MR mild TR mild MT. Addition of Entresto as tolerated added by Cardiology. Subjective Date/time seen: 06/29/23 14:21 Interval history: Patient presented with shortness of breath and intermittent chest discomfort. Over the past week or so. Chest discomfort left-sided nonradiating not associated with nausea vomiting diaphoresis. In the ER he was noted to have tachycardia with heart rate of 147 D-dimer greater than 20 troponin 0.705 BNP 6600 30[place] [address] chest x-ray clear lung CTA chest abdomen pelvis showed no PE minimal by basilar pulmonary edema and small bilateral pleural effusion borderline heart size with reflux contrast into the IVC and hepatic veins consistent tricuspid regurgitation no acute intra-abdominal or pelvic process. EKG showed AFib with RVR with a rate of 165. Was started on diltiazem drip echo ordered chest Vasc score 0. Started on Lovenox cardiology was consulted and status post JUAN which demonstrated thrombus in the left atrial appendage. Also noted to have cardiomyopathy for which she is getting started on AR and I and spironolactone cardioversion that was originally planned will be delayed after at least 4 weeks of anticoagulation. 06/29/2023: Went AFib with RVR overnight. Diltiazem was re-initiated. Feeling better currently on IV diltiazem. Review of Systems Review of Systems: All systems reviewed & are unremarkable except as noted in HPI and below Exam Narrative: GENERAL: Well-appearing, well-nourished, and in no acute distress. HEAD: Normocephalic, atraumatic. EYES: EOMI. ENT: Mucous membranes moist NECK: Supple. No adenopathy or masses. No JVD CHEST: Coarse breath sound. No respiratory distress. No wheezes rales or rhonchi HEART: Mildly tachycardic. AFib rhythm no murmur heard. Normal peripheral pulses. EXTREMITIES: Normal range of motion. No edema. SKIN: Warm, dry, no rash. NEURO: No focal deficits. Alert and oriented x3. PSYCH: Normal mood and affect Objective Data Vital Signs Vital Signs: Vital Signs - 24 hr 06/28/23 15:39 06/28/23 16:00 06/28/23 16:00 Temperature 96.6 F L Pulse Rate 99 112 H Respiratory Rate 20 Blood Pressure 102/83 Pulse Oximetry 94 Oxygen Delivery Room Air Oxygen Flow Rate 06/28/23 18:00 06/28/23 18:14 06/28/23 19:54 Temperature 96 F L Pulse Rate 115 H 116 H 13 L Respiratory Rate 20 Blood Pressure 112/96 H Pulse Oximetry 92 Oxygen Delivery Oxygen Flow Rate 06/28/23 20
[2023-06-29] MEDS: RIVAROXABAN 20 MG TABLET PO (16:52)
[2023-06-30] VITALS (21 sets, daily range): BP systolic 104–133; BP diastolic 59–103; PULSE 97–139; RESP 18–24; TEMP 36–36.7; O2SAT 93–98
[2023-06-30 05:07] LABS: Basophils Absolute Auto 0.1 K/mm3 (0.0-0.1); Basophils Percent Auto 0.6 % (0.2-1.2); Eosinophils Absolute Auto 0.2 K/mm3 (0-0.3); Eosinophils Percent Auto 1.9 % (0-4.4); Hematocrit 42.8 % (42.0-52.0); Immature Granulocyte Absolute 0.05 K/mm3 (0.00-0.031); Immature Granulocyte Percent A 0.5 % (0-0.5); Lymphocytes Absolute Auto 3.18 K/mm3 (0.9-3.2); Lymphocytes Percent Auto 29.5 % (18.3-44.2); Mean Corpuscular HGB Conc 32.7 g/dl (32-36); Mean Corpuscular Hemoglobin 29.6 pg (26-34); Mean Corpuscular Volume 90.5 fl (80-100); Mean Platelet Volume 10.1 fl (7.4-10.4); Monocytes Absolute Auto 0.7 K/mm3 (0.1-0.6); Monocytes Percent Auto 6.4 % (2.6-8.5); Neutrophils Absolute Auto 6.6 K/mm3 (1.3-6.7); Neutrophils Percent Auto 61.1 % (45.5-73.1); Platelet Count Result 232 k/mm3 (150-375); Red Blood Count 4.73 M/mm3 (4.6-6.20); Red Cell Distribution Width 13.8 % (11.5-14.5); White Blood Count 10.8 K/mm3 (4.5-10.0)
[2023-06-30 05:20] LABS: Alanine Aminotransferase 35 U/L (6-50); Albumin Level 3.4 g/dL (3.5-5.1); Alkaline Phosphatase 53 U/L (38-126); Anion Gap 9 mmol/L (8-16); Aspartate Amino Transferase 29 U/L (17-59); Bilirubin,Total 0.8 mg/dL (0.2-1.3); Blood Urea Nitrogen 22 mg/dL (9-20); Calcium 8.8 mg/dL (8.4-10.2); Carbon Dioxide 20 mmol/L (22-30); Chloride 108 mmol/L (98-107); Estimated CRCL calculation 72 ml/min; Estimated Glomerular Filt Rate > 60; Glucose 110 mg/dL (65-110); Magnesium 2.2 mg/dL (1.6-2.3); Sodium 137 mmol/L (137-145)
[2023-06-30] MEDS: METOPROLOL SUCCINATE EXT REL 100 MG TABCR PO (08:02)
[2023-06-30] MEDS: SACUBITRIL/VALSARTAN 12-13 MG TABLET 1 TAB PO ×2 (11:15→21:40)
[2023-06-30] MEDS: METOPROLOL SUCCINATE EXT REL 50 MG TABCR PO (11:15)
--- NOTE | 2023-06-30 12:52 | PM.PNCARD ---
Progress Note: A&P Assessment and Plan (1) Atrial fibrillation with RVR: Code(s): I48.91 - Unspecified atrial fibrillation Status: Acute Assessment and Plan: Heart rate remains suboptimally controlled on oral metoprolol.. Need to avoid diltiazem as much as possible given LV dysfunction, however, was quite symptomatic with uncontrolled AFib with RVR. Toprol XL increased to 100 mg daily with suboptimal control off diltiazem. Continue systemic anticoagulation with Xarelto 20 mg daily for stroke risk reduction. Weaned off diltiazem. Increase Toprol XL to 150 mg daily. Monitor BP and heart rate control. If heart rate adequate controlled overnight, anticipate discharge home tomorrow. Heart rate control strategy is our only real option at this point. Discussed at length. All questions answered to his satisfaction. Patient agrees with plan of care. (2) Cardiomyopathy: Code(s): I42.9 - Cardiomyopathy, unspecified Status: Acute Assessment and Plan: Severe LV systolic dysfunction EF 15-20% currently compensated symptomatic regarding LV dysfunction in atrial fibrillation. NYHA class 3 symptoms. Patient is not currently on diuretic therapy. He is not on guideline directed medical therapy the given intermittent relative hypotension management options may be limited. 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 Ischemic workup as an outpatient. Unable to achieve rhythm control due to left atrial appendage thrombus so rate control strategy must be employed. Plan for repeat JUAN guided cardioversion attempt after 4 weeks of systemic anticoagulation without interruption as discussed at length. Tolerating addition of Entresto 12/13 mg twice daily thus far. Continue to monitor renal function electrolytes stable thus far. (3) Thrombus of left atrial appendage: Code(s): I51.3 - Intracardiac thrombosis, not elsewhere classified Status: Acute Assessment and Plan: Continue systemic anticoagulation with Xarelto 20 mg daily without interruption. Unable to proceed with cardioversion as discussed above. We discussed the inherent stroke risk in this regard in the need for anticoagulation moving forward. (4) Elevated troponin: Code(s): R79.89 - Other specified abnormal findings of blood chemistry Status: Acute Assessment and Plan: Likely demand ischemia given LV dysfunction, atrial fibrillation with RVR. Cannot entirely exclude underlying CAD, ischemic workup as an outpatient. Subjective Date/time seen: Date of service: 06/30/23 12:52 Interval history: 62-year-old man with: Newly recognized atrial fib felt to be of recent onset. Also newly diagnosed cardiomyopathy by echo that was done yesterday. Patient is relatively comfortable today and offers no significant complaints IV diltiazem is running heart rate is in the 110 range. Transesophageal echocardiogram images were done this morning in anticipation of cardioversion. Unfortunately there is a very large thrombus in the left atrial appendage contraindicating any attempt at cardioversion at this time. Date of service 06/29/2023: Patient feeling better this morning. Had more shortness of breath with heart rate with AFib RVR more rapid 120 to 140s when diltiazem was discontinued. Upon re-initiation are better controlled symptoms significantly improved. He remains on IV diltiazem and oral metoprolol. Her rate better controlled. He still notes some exertional dyspnea but no dizziness, chest pain. Tolerating medications. Mother bedside. Discussed at great length. All questions answered to their satisfaction. Explained plan of care in detail. Date of service 06/22/2023: Patient feels a little better. Still notes some shortness of breath with activity. Heart rate increases to 120 to 130s with activity little bit better controlled around 100 beats per minute on average at rest.
--- NOTE | 2023-06-30 13:49 | PM.IMPN ---
Progress Note: A&P Assessment and Plan (1) Atrial fibrillation with RVR: Code(s): I48.91 - Unspecified atrial fibrillation Status: Acute (2) Exertional shortness of breath: Code(s): R06.02 - Shortness of breath Status: Inactive Plan Patient presented with shortness of breath and intermittent chest discomfort. Over the past week or so. Chest discomfort left-sided nonradiating not associated with nausea vomiting diaphoresis. In the ER he was noted to have tachycardia with heart rate of 147 D-dimer greater than 20 troponin 0.705 BNP 6600 30-[place] [address] chest x-ray clear lung CTA chest abdomen pelvis showed no PE minimal by basilar pulmonary edema and small bilateral pleural effusion borderline heart size with reflux contrast into the IVC and hepatic veins consistent tricuspid regurgitation no acute intra-abdominal or pelvic process. EKG showed AFib with RVR with a rate of 165. Was started on diltiazem drip echo ordered chest Vasc score 0. Started on Lovenox cardiology was consulted and status post JUAN which demonstrated thrombus in the left atrial appendage. Also noted to have cardiomyopathy for which she is getting started on AR and I and spironolactone cardioversion that was originally planned will be delayed after at least 4 weeks of anticoagulation. Now has been placed on Xarelto and metoprolol. Serial cardiac enzymes 0.705-0.680 TSH is normal LDL 83. Echo with EF 15-20% mild pulmonary hypertension mild MR mild TR mild [place]. Addition of Entresto as tolerated added by Cardiology. Up titration of metoprolol as plan by Cardiology Subjective Date/time seen: 06/30/23 13:49 Interval history: Patient presented with shortness of breath and intermittent chest discomfort. Over the past week or so. Chest discomfort left-sided nonradiating not associated with nausea vomiting diaphoresis. In the ER he was noted to have tachycardia with heart rate of 147 D-dimer greater than 20 troponin 0.705 BNP 6600 30-[place] [address] chest x-ray clear lung CTA chest abdomen pelvis showed no PE minimal by basilar pulmonary edema and small bilateral pleural effusion borderline heart size with reflux contrast into the IVC and hepatic veins consistent tricuspid regurgitation no acute intra-abdominal or pelvic process. EKG showed AFib with RVR with a rate of 165. Was started on diltiazem drip echo ordered chest Vasc score 0. Started on Lovenox cardiology was consulted and status post JUAN which demonstrated thrombus in the left atrial appendage. Also noted to have cardiomyopathy for which she is getting started on AR and I and spironolactone cardioversion that was originally planned will be delayed after at least 4 weeks of anticoagulation. 06/29/2023: Went AFib with RVR overnight. Diltiazem was re-initiated. Feeling better currently on IV diltiazem. 06/22/2023: Remains in AFib with intermittent RVR. Cardiology following. No other new complaints. Review of Systems Review of Systems: All systems reviewed & are unremarkable except as noted in HPI and below Exam Narrative: GENERAL: Well-appearing, well-nourished, and in no acute distress. HEAD: Normocephalic, atraumatic. EYES: EOMI. ENT: Mucous membranes moist NECK: Supple. No adenopathy or masses. No JVD CHEST: Coarse breath sound. No respiratory distress. No wheezes rales or rhonchi HEART: Mildly tachycardic. AFib rhythm no murmur heard. Normal peripheral pulses. EXTREMITIES: Normal range of motion. No edema. SKIN: Warm, dry, no rash. NEURO: No focal deficits. Alert and oriented x3. PSYCH: Normal mood and affect Objective Data Vital Signs Vital Signs: Vital Signs - 24 hr 06/29/23 14:00 06/29/23 16:00 06/29/23 16:00 Temperature 97.6 F Pulse Rate 108 H 96 102 H Respiratory Rate 20 Blood Pressure 108/82 Pulse Oximetry 96 Oxygen Delivery Oxygen Flow Rate 06/29/23 16:00 06/29/23 20:00 06/29/23 23:55 Temperature 98.2 F 96.8 F L
[2023-06-30] MEDS: RIVAROXABAN 20 MG TABLET PO (16:28)
[2023-06-30] MEDS: METOPROLOL TARTRATE INJ 5 MG/5 ML VIAL IV PUSH (17:55)
[2023-06-30] MEDS: DIGOXIN 250 MCG TABLET PO (21:40)
[2023-07-01] VITALS (17 sets, daily range): BP systolic 94–113; BP diastolic 66–81; PULSE 60–116; RESP 16–24; TEMP 36.1–37; O2SAT 95–98
[2023-07-01 05:14] LABS: Basophils Absolute Auto 0.1 K/mm3 (0.0-0.1); Basophils Percent Auto 0.5 % (0.2-1.2); Eosinophils Absolute Auto 0.3 K/mm3 (0-0.3); Eosinophils Percent Auto 2.3 % (0-4.4); Hematocrit 45.9 % (42.0-52.0); Hemoglobin 15.4 g/dL (14.0-18.0); Immature Granulocyte Absolute 0.03 K/mm3 (0.00-0.031); Immature Granulocyte Percent A 0.3 % (0-0.5); Lymphocytes Absolute Auto 3.62 K/mm3 (0.9-3.2); Lymphocytes Percent Auto 32.1 % (18.3-44.2); Mean Corpuscular HGB Conc 33.6 g/dl (32-36); Mean Corpuscular Hemoglobin 29.9 pg (26-34); Mean Corpuscular Volume 89.1 fl (80-100); Mean Platelet Volume 9.9 fl (7.4-10.4); Monocytes Absolute Auto 0.8 K/mm3 (0.1-0.6); Monocytes Percent Auto 7.1 % (2.6-8.5); Neutrophils Absolute Auto 6.5 K/mm3 (1.3-6.7); Neutrophils Percent Auto 57.7 % (45.5-73.1); Platelet Count Result 276 k/mm3 (150-375); Red Blood Count 5.15 M/mm3 (4.6-6.20); Red Cell Distribution Width 13.7 % (11.5-14.5); White Blood Count 11.3 K/mm3 (4.5-10.0)
[2023-07-01 05:30] LABS: Alanine Aminotransferase 31 U/L (6-50); Alkaline Phosphatase 54 U/L (38-126); Anion Gap 5 mmol/L (8-16); Aspartate Amino Transferase 37 U/L (17-59); Blood Urea Nitrogen 21 mg/dL (9-20); Calcium 8.2 mg/dL (8.4-10.2); Carbon Dioxide 26 mmol/L (22-30); Chloride 107 mmol/L (98-107); Estimated CRCL calculation 60 ml/min; Estimated Glomerular Filt Rate > 60; Glucose 98 mg/dL (65-110); Magnesium 2.1 mg/dL (1.6-2.3); Potassium 4.5 mmol/L (3.4-5.0); Sodium 138 mmol/L (137-145)
[2023-07-01] MEDS: SACUBITRIL/VALSARTAN 12-13 MG TABLET 1 TAB PO (08:46)
[2023-07-01] MEDS: DIGOXIN 250 MCG TABLET PO (08:46)
[2023-07-01] MEDS: METOPROLOL SUCCINATE EXT REL 50 MG TABCR 150 MG PO (08:46)
[2023-07-01] MEDS: METOPROLOL SUCCINATE EXT REL 50 MG TABCR PO (10:39)
--- NOTE | 2023-07-01 12:36 | PM.PNCARD ---
Progress Note: A&P Assessment and Plan (1) Atrial fibrillation with RVR: Code(s): I48.91 - Unspecified atrial fibrillation Status: Acute Assessment and Plan: Heart rate remains suboptimally controlled on oral metoprolol.. Need to avoid diltiazem as much as possible given LV dysfunction, however, was quite symptomatic with uncontrolled AFib with RVR. Toprol XL increased to 100 mg daily with suboptimal control off diltiazem. Continue systemic anticoagulation with Xarelto 20 mg daily for stroke risk reduction. Weaned off diltiazem heart rate unacceptably rapid on Toprol XL 150 mg daily. At great length, we discussed medical management options in the importance of heart rate controlled particular given severe LV systolic dysfunction, symptomatic status with AFib with RVR. Discussed again limited options given left atrial appendage thrombus the need to avoid antiarrhythmic therapy much as possible. We also discussed preference to avoid diltiazem but that this may be necessary given the relative risks versus benefits of uncontrolled atrial fibrillation with RVR resulting highly symptomatic status poor cardiac output versus negative chronotropic effects diltiazem and risk for heart failure exacerbation. He verbalized understanding. Will increase Toprol XL to 200 mg daily along with digoxin 0.25 mg daily for now. Heart rate better controlled patient then stable for discharge but will need to monitor for now. If unacceptable heart rate control will then add diltiazem to Toprol XL. We discussed relative risks and benefits in this regard. Cardioversion is not an option at this time. We need to avoid antiarrhythmic therapy such as amiodarone given the known presence of left atrial appendage thrombus and risk for embolic stroke with use. All questions answered to his satisfaction. Patient agrees with plan of care. (2) Cardiomyopathy: Code(s): I42.9 - Cardiomyopathy, unspecified Status: Acute Assessment and Plan: Severe LV systolic dysfunction EF 15-20% currently compensated symptomatic regarding LV dysfunction in atrial fibrillation. NYHA class 3 symptoms. Patient is not currently on diuretic therapy. He is not on guideline directed medical therapy the given intermittent relative hypotension management options may be limited. 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 Ischemic workup as an outpatient. Unable to achieve rhythm control due to left atrial appendage thrombus so rate control strategy must be employed. Plan for repeat JUAN guided cardioversion attempt after 4 weeks of systemic anticoagulation without interruption as discussed at length. Tolerating addition of Entresto / mg twice daily thus far. Continue to monitor renal function electrolytes stable thus far. Increased Entresto to 24/26 mg twice daily. (3) Thrombus of left atrial appendage: Code(s): I51.3 - Intracardiac thrombosis, not elsewhere classified Status: Acute Assessment and Plan: Continue systemic anticoagulation with Xarelto 20 mg daily without interruption. Unable to proceed with cardioversion as discussed above. We discussed the inherent stroke risk in this regard in the need for anticoagulation moving forward. (4) Elevated troponin: Code(s): R79.89 - Other specified abnormal findings of blood chemistry Status: Acute Assessment and Plan: Likely demand ischemia given LV dysfunction, atrial fibrillation with RVR. Cannot entirely exclude underlying CAD, ischemic workup as an outpatient. Subjective Date/time seen: Date of service: 07/01/23 12:36 Interval history: 62-year-old man with: Newly recognized atrial fib felt to be of recent onset. Also newly diagnosed cardiomyopathy by echo that was done yesterday. Patient is relatively comfortable today and offers no significant complaints IV diltiazem is running heart rate is in the 110 range. Tr
--- NOTE | 2023-07-01 12:59 | PM.IMPN ---
Progress Note: A&P Assessment and Plan (1) Atrial fibrillation with RVR: Code(s): I48.91 - Unspecified atrial fibrillation Status: Acute (2) Exertional shortness of breath: Code(s): R06.02 - Shortness of breath Status: Inactive Plan Patient presented with shortness of breath and intermittent chest discomfort. Over the past week or so. Chest discomfort left-sided nonradiating not associated with nausea vomiting diaphoresis. In the ER he was noted to have tachycardia with heart rate of 147 D-dimer greater than 20 troponin 0.705 BNP 6600 30-[place] [address] chest x-ray clear lung CTA chest abdomen pelvis showed no PE minimal by basilar pulmonary edema and small bilateral pleural effusion borderline heart size with reflux contrast into the IVC and hepatic veins consistent tricuspid regurgitation no acute intra-abdominal or pelvic process. EKG showed AFib with RVR with a rate of 165. Was started on diltiazem drip echo ordered chest Vasc score 0. Started on Lovenox cardiology was consulted and status post JUAN which demonstrated thrombus in the left atrial appendage. Also noted to have cardiomyopathy for which she is getting started on AR and I and spironolactone cardioversion that was originally planned will be delayed after at least 4 weeks of anticoagulation. Now has been placed on Xarelto and metoprolol. Serial cardiac enzymes 0.705-0.680 TSH is normal LDL 83. Echo with EF 15-20% mild pulmonary hypertension mild MR mild TR mild [place]. Addition of Entresto as tolerated added by Cardiology. Up titration of metoprolol as plan by Cardiology. Dose of digoxin was given. Metoprolol dose adjusted Subjective Date/time seen: 07/01/23 12:59 Interval history: Patient presented with shortness of breath and intermittent chest discomfort. Over the past week or so. Chest discomfort left-sided nonradiating not associated with nausea vomiting diaphoresis. In the ER he was noted to have tachycardia with heart rate of 147 D-dimer greater than 20 troponin 0.705 BNP 6600 30-[place] [address] chest x-ray clear lung CTA chest abdomen pelvis showed no PE minimal by basilar pulmonary edema and small bilateral pleural effusion borderline heart size with reflux contrast into the IVC and hepatic veins consistent tricuspid regurgitation no acute intra-abdominal or pelvic process. EKG showed AFib with RVR with a rate of 165. Was started on diltiazem drip echo ordered chest Vasc score 0. Started on Lovenox cardiology was consulted and status post JUAN which demonstrated thrombus in the left atrial appendage. Also noted to have cardiomyopathy for which she is getting started on AR and I and spironolactone cardioversion that was originally planned will be delayed after at least 4 weeks of anticoagulation. 06/29/2023: Went AFib with RVR overnight. Diltiazem was re-initiated. Feeling better currently on IV diltiazem. 06/22/2023: Remains in AFib with intermittent RVR. Cardiology following. No other new complaints. 07/01/2023: Intermittent AFib with RVR. Received a dose of digoxin and metoprolol dose increased today. Breathing is better he states Review of Systems Review of Systems: All systems reviewed & are unremarkable except as noted in HPI and below Exam Narrative: GENERAL: Well-appearing, well-nourished, and in no acute distress. HEAD: Normocephalic, atraumatic. EYES: EOMI. ENT: Mucous membranes moist NECK: Supple. No adenopathy or masses. No JVD CHEST: Coarse breath sound. No respiratory distress. No wheezes rales or rhonchi HEART: Mildly tachycardic. AFib rhythm no murmur heard. Normal peripheral pulses. EXTREMITIES: Normal range of motion. No edema. SKIN: Warm, dry, no rash. NEURO: No focal deficits. Alert and oriented x3. PSYCH: Normal mood and affect Objective Data Vital Signs Vital Signs: Vital Signs - 24 hr 06/30/23 15:44 06/30/23 17:55 06/30/23 14:00 Temperature 98.1 F Pulse Rate 116 H 139 H
[2023-07-01] MEDS: RIVAROXABAN 20 MG TABLET PO (19:35)
[2023-07-01] MEDS: SACUBITRIL/VALSARTAN 24-26 MG TABLET 1 TAB PO (20:52)
[2023-07-02] VITALS (19 sets, daily range): BP systolic 92–111; BP diastolic 72–88; PULSE 52–122; RESP 16–20; TEMP 36.6–36.8; O2SAT 96–98
[2023-07-02] MEDS: METOPROLOL SUCCINATE EXT REL 100 MG TABCR 200 MG PO (08:30)
[2023-07-02] MEDS: SACUBITRIL/VALSARTAN 24-26 MG TABLET 1 TAB PO ×2 (08:30→20:36)
--- NOTE | 2023-07-02 09:42 | PM.PNCARD ---
Progress Note: A&P Assessment and Plan (1) Atrial fibrillation with RVR: Code(s): I48.91 - Unspecified atrial fibrillation Status: Acute Assessment and Plan: Heart rate remains suboptimally controlled on oral metoprolol.. Need to avoid diltiazem as much as possible given LV dysfunction, however, was quite symptomatic with uncontrolled AFib with RVR. Toprol XL increased to 200 mg daily. He does still have tachycardia with activity. Will add digoxin 250 mcg daily For additional rate control. Continue systemic anticoagulation with Xarelto 20 mg daily for stroke risk reduction. He will needed digoxin level checked in 1 week. (2) Cardiomyopathy: Code(s): I42.9 - Cardiomyopathy, unspecified Status: Acute Assessment and Plan: Severe LV systolic dysfunction EF 15-20% currently compensated symptomatic regarding LV dysfunction in atrial fibrillation. NYHA class 3 symptoms. Patient is not currently on diuretic therapy. He is not on guideline directed medical therapy the given intermittent relative hypotension management options may be limited. 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 Ischemic workup as an outpatient. Unable to achieve rhythm control due to left atrial appendage thrombus so rate control strategy must be employed. Plan for repeat JUAN guided cardioversion attempt after 4 weeks of systemic anticoagulation without interruption as discussed at length. Tolerating addition of Entresto 12/13 mg twice daily thus far. Continue to monitor renal function electrolytes stable thus far. Increased Entresto to 24/26 mg twice daily. Discussed risk of sudden cardiac because of severe cardiomyopathy And the concept of a LifeVest. He would like to proceed with LifeVest. Order placed. He will be okay for discharge after LifeVest is placed Provided that his heart rate is well controlled. (3) Thrombus of left atrial appendage: Code(s): I51.3 - Intracardiac thrombosis, not elsewhere classified Status: Acute Assessment and Plan: Continue systemic anticoagulation with Xarelto 20 mg daily without interruption. (4) Elevated troponin: Code(s): R79.89 - Other specified abnormal findings of blood chemistry Status: Acute Assessment and Plan: Likely demand ischemia given LV dysfunction, atrial fibrillation with RVR. Cannot entirely exclude underlying CAD, ischemic workup as an outpatient. Subjective Date/time seen: 07/02/23 09:42 Interval history: 62-year-old man with: Newly recognized atrial fib felt to be of recent onset. Also newly diagnosed cardiomyopathy by echo that was done yesterday. Patient is relatively comfortable today and offers no significant complaints IV diltiazem is running heart rate is in the 110 range. Transesophageal echocardiogram images were done this morning in anticipation of cardioversion. Unfortunately there is a very large thrombus in the left atrial appendage contraindicating any attempt at cardioversion at this time. Date of service 06/29/2023: Patient feeling better this morning. Had more shortness of breath with heart rate with AFib RVR more rapid 120 to 140s when diltiazem was discontinued. Upon re-initiation are better controlled symptoms significantly improved. He remains on IV diltiazem and oral metoprolol. Her rate better controlled. He still notes some exertional dyspnea but no dizziness, chest pain. Tolerating medications. Mother bedside. Discussed at great length. All questions answered to their satisfaction. Explained plan of care in detail. Date of service 06/30/2023: Patient feels a little better. Still notes some shortness of breath with activity. Heart rate increases to 120 to 130s with activity little bit better controlled around 100 beats per minute on average at rest. Diltiazem was discontinued yesterday. Tolerating medical therapy thus far. Denies di
[2023-07-02] MEDS: DIGOXIN 250 MCG TABLET PO (11:43)
--- NOTE | 2023-07-02 14:57 | PM.IMPN ---
Progress Note: A&P Assessment and Plan (1) Atrial fibrillation with RVR: Code(s): I48.91 - Unspecified atrial fibrillation Status: Acute (2) Exertional shortness of breath: Code(s): R06.02 - Shortness of breath Status: Inactive Plan Patient presented with shortness of breath and intermittent chest discomfort. Over the past week or so. Chest discomfort left-sided nonradiating not associated with nausea vomiting diaphoresis. In the ER he was noted to have tachycardia with heart rate of 147 D-dimer greater than 20 troponin 0.705 BNP 6600 30[place] [address] chest x-ray clear lung CTA chest abdomen pelvis showed no PE minimal by basilar pulmonary edema and small bilateral pleural effusion borderline heart size with reflux contrast into the IVC and hepatic veins consistent tricuspid regurgitation no acute intra-abdominal or pelvic process. EKG showed AFib with RVR with a rate of 165. Was started on diltiazem drip echo ordered chest Vasc score 0. Started on Lovenox cardiology was consulted and status post JUAN which demonstrated thrombus in the left atrial appendage. Also noted to have cardiomyopathy for which she is getting started on AR and I and spironolactone cardioversion that was originally planned will be delayed after at least 4 weeks of anticoagulation. Now has been placed on Xarelto and metoprolol. Serial cardiac enzymes 0.705-0.680 TSH is normal LDL 83. Echo with EF 15-20% mild pulmonary hypertension mild MR mild TR mild [place]. Addition of Entresto as tolerated added by Cardiology. Up titration of metoprolol as plan by Cardiology. Dose of digoxin was given and now has been scheduled. Metoprolol dose adjusted Subjective Date/time seen: 07/02/23 14:57 Interval history: Patient presented with shortness of breath and intermittent chest discomfort. Over the past week or so. Chest discomfort left-sided nonradiating not associated with nausea vomiting diaphoresis. In the ER he was noted to have tachycardia with heart rate of 147 D-dimer greater than 20 troponin 0.705 BNP 6600 30-[place] [address] chest x-ray clear lung CTA chest abdomen pelvis showed no PE minimal by basilar pulmonary edema and small bilateral pleural effusion borderline heart size with reflux contrast into the IVC and hepatic veins consistent tricuspid regurgitation no acute intra-abdominal or pelvic process. EKG showed AFib with RVR with a rate of 165. Was started on diltiazem drip echo ordered chest Vasc score 0. Started on Lovenox cardiology was consulted and status post JUAN which demonstrated thrombus in the left atrial appendage. Also noted to have cardiomyopathy for which she is getting started on AR and I and spironolactone cardioversion that was originally planned will be delayed after at least 4 weeks of anticoagulation. 06/29/2023: Went AFib with RVR overnight. Diltiazem was re-initiated. Feeling better currently on IV diltiazem. 06/22/2023: Remains in AFib with intermittent RVR. Cardiology following. No other new complaints. 07/01/2023: Intermittent AFib with RVR. Received a dose of digoxin and metoprolol dose increased today. Breathing is better he states 07/02/2023: Overnight events noted with AFib with RVR 140s. Digoxin has been added. No new complaints Review of Systems Review of Systems: All systems reviewed & are unremarkable except as noted in HPI and below Exam Narrative: GENERAL: Well-appearing, well-nourished, and in no acute distress. HEAD: Normocephalic, atraumatic. EYES: EOMI. ENT: Mucous membranes moist NECK: Supple. No adenopathy or masses. No JVD CHEST: Coarse breath sound. No respiratory distress. No wheezes rales or rhonchi HEART: Mildly tachycardic. AFib rhythm no murmur heard. Normal peripheral pulses. EXTREMITIES: Normal range of motion. No edema. SKIN: Warm, dry, no rash. NEURO: No focal deficits. Alert and oriented x3. PSYCH: Normal mood and affect Objective Data Vital Signs
[2023-07-02] MEDS: RIVAROXABAN 20 MG TABLET PO (16:48)
[2023-07-03] VITALS (19 sets, daily range): BP systolic 89–108; BP diastolic 67–84; PULSE 76–107; RESP 18–20; TEMP 36.7–37.1; O2SAT 96–99
[2023-07-03 08:57] LABS: Basophils Absolute Auto 0.1 K/mm3 (0.0-0.1); Basophils Percent Auto 0.6 % (0.2-1.2); Eosinophils Absolute Auto 0.4 K/mm3 (0-0.3); Eosinophils Percent Auto 4.4 % (0-4.4); Hematocrit 49.5 % (42.0-52.0); Hemoglobin 16.2 g/dL (14.0-18.0); Immature Granulocyte Absolute 0.03 K/mm3 (0.00-0.031); Immature Granulocyte Percent A 0.3 % (0-0.5); Lymphocytes Absolute Auto 2.41 K/mm3 (0.9-3.2); Lymphocytes Percent Auto 25.3 % (18.3-44.2); Mean Corpuscular HGB Conc 32.7 g/dl (32-36); Mean Corpuscular Hemoglobin 29.8 pg (26-34); Mean Platelet Volume 9.6 fl (7.4-10.4); Monocytes Absolute Auto 0.5 K/mm3 (0.1-0.6); Monocytes Percent Auto 5.4 % (2.6-8.5); Neutrophils Absolute Auto 6.1 K/mm3 (1.3-6.7); Platelet Count Result 292 k/mm3 (150-375); Red Blood Count 5.44 M/mm3 (4.6-6.20); Red Cell Distribution Width 14.1 % (11.5-14.5); White Blood Count 9.5 K/mm3 (4.5-10.0)
[2023-07-03] MEDS: METOPROLOL SUCCINATE EXT REL 100 MG TABCR 200 MG PO (09:09)
[2023-07-03] MEDS: SACUBITRIL/VALSARTAN 24-26 MG TABLET 1 TAB PO ×2 (09:10→20:26)
[2023-07-03] MEDS: DIGOXIN 250 MCG TABLET PO (09:10)
[2023-07-03 09:12] LABS: Anion Gap 9 mmol/L (8-16); Blood Urea Nitrogen 17 mg/dL (9-20); Calcium 8.3 mg/dL (8.4-10.2); Carbon Dioxide 20 mmol/L (22-30); Chloride 108 mmol/L (98-107); Estimated CRCL calculation 65 ml/min; Estimated Glomerular Filt Rate > 60; Glucose 166 mg/dL (65-110); Magnesium 2.1 mg/dL (1.6-2.3); Potassium 4.4 mmol/L (3.4-5.0); Sodium 137 mmol/L (137-145)
[2023-07-03] MEDS: dilTIAZem HCL 30 MG TABLET PO ×2 (12:54→20:32)
--- NOTE | 2023-07-03 14:50 | PM.IMPN ---
Progress Note: A&P Assessment and Plan (1) Atrial fibrillation with RVR: Code(s): I48.91 - Unspecified atrial fibrillation Status: Acute Assessment and Plan: Patient presents with shortness of breath and intermittent chest pain and found to be tachycardic with new onset AFib/RVR. D-dimer elevated. CTA Ch/A/P showing no PE but did show minimal bibasilar pulm edema and small bilateral pleural effusions. Doppler negative for DVT. TSH was normal. He was started on diltiazem IV. Metoprolol succinate added. Xarelto started. Metoprolol advance and ultimately digoxin had to be added. Able to be weaned off of diltiazem. Echo shows EF of 15-20% with abnormal diastolic function and reduced RV systolic function. He has mild valvular disease. JUAN was done for possible cardioversion but this showed dilated left atrium with large clot in the left atrial appendage. Plan is for rate control pain. Continue Xarelto Cardiology following appreciate their input. (2) Cardiomyopathy: Code(s): I42.9 - Cardiomyopathy, unspecified Status: Acute Assessment and Plan: As above. EF 15-20% possibly related to rate poorly controlled. BNP 6630. CXR clear on admission. BP soft but tolerating Entresto and Toprol XL LifeVest being considered. Add empagliflozin? (3) Elevated troponin: Code(s): R79.89 - Other specified abnormal findings of blood chemistry Status: Acute Assessment and Plan: Related to AFib/RVR. EKG showing anteolateral T wave inversion concerning for ischemia Plan for ischemic evaluation as outpatient. (4) Thrombus of left atrial appendage: Code(s): I51.3 - Intracardiac thrombosis, not elsewhere classified Status: Acute Assessment and Plan: JUAN performed 06/28 showing large left atrial appendage clot. Cardioversion aborted. Continue Xarelto Plan DVT prophylaxis - Xarelto Code status - full Subjective Date/time seen: 07/03/23 14:50 Interval history: 62yo healthy male here for SOB and chest pain and found to have new onset AFib and CMP. Assuming care. Chart reviewed. Feels well today. No problems overnight. Denies chest pain. Does have some shortness of breath at rest on occasion Exam Narrative: AF 98.0 103/84 104 18 96% ra Gen - NARD Chest -decreased breath sounds in the right base otherwise clear. CV -irregular irregular. Tachycardic.Telemetry showing AFib with RVR with heart rate around 105. Abd - Soft, NT/ND, Positive BS Ext - No pedal edema Neuro - Alert and oriented. Nonfocal exam. Psych - Nml mood and affect Skin - Warm and dry Objective Data Vital Signs Vital Signs: Vital Signs - 24 hr 07/02/23 16:00 07/02/23 16:00 07/02/23 16:00 Temperature 98 F Pulse Rate 92 105 H Respiratory Rate 18 Blood Pressure 111/74 Pulse Oximetry 97 97 Oxygen Delivery Room Air 07/02/23 18:00 07/02/23 19:27 07/02/23 23:10 Temperature 97.8 F 97.8 F Pulse Rate 108 H 56 L 108 H Respiratory Rate 20 18 Blood Pressure 92/78 L 99/72 L Pulse Oximetry 98 98 Oxygen Delivery 07/03/23 04:28 07/02/23 20:00 07/02/23 22:00 Temperature 98.1 F Pulse Rate 76 98 111 H Respiratory Rate 20 Blood Pressure 90/76 L Pulse Oximetry 96 Oxygen Delivery 07/03/23 00:00 07/03/23 02:00 07/03/23 04:00 Temperature Pulse Rate 104 H 98 102 H Respiratory Rate Blood Pressure Pulse Oximetry Oxygen Delivery 07/03/23 06:00 07/03/23 07:32 07/03/23 09:09 Temperature 98.4 F Pulse Rate 102 H 98 105 H Respiratory Rate 18 Blood Pressure 91/75 L Pulse Oximetry 96 Oxygen Delivery 07/03/23 09:10 07/03/23 08:00 07/03/23 08:00 Temperature Pulse Rate 100 103 H 103 H Respiratory Rate Blood Pressure Pulse Oximetry Oxygen Delivery Room Air 07/03/23 10:00 07/03/23 11:29 07/03/23 12:00 Temperature 98.0 F Pulse Rate 103 H 102 H 102 H Respiratory Rate 1
[2023-07-03] MEDS: RIVAROXABAN 20 MG TABLET PO (16:54)
--- NOTE | 2023-07-03 17:08 | PM.PNCARD ---
Progress Note: A&P Assessment and Plan (1) Atrial fibrillation with RVR: Code(s): I48.91 - Unspecified atrial fibrillation Status: Acute Assessment and Plan: Unfortunately, optimally controlled despite maximal dose of Toprol XL 200 mg daily, addition of digoxin 0.25 mg daily. He remains tachycardic at rest particularly driven by AFib and severe underlying LV systolic dysfunction. Nonetheless, he remains symptomatic with AFib with RVR. As much as he would like to avoid diltiazem if this controls his heart rate better may have no choice but to utilize in the short term for heart rate control. Anticoagulation with Xarelto 20 mg daily. Unable to proceed with JUAN guided cardioversion due to the left atrial appendage thrombus. Patient is aware of the stroke risk associated. We may have no choice but to add diltiazem but would still attempt to utilize as low doses of possible and may start with 30 mg twice daily and continue if heart rate better controlled and tolerated. Outpatient digoxin level in 1 week. (2) Cardiomyopathy: Code(s): I42.9 - Cardiomyopathy, unspecified Status: Acute Assessment and Plan: Severe LV systolic dysfunction EF 15-20% currently compensated symptomatic regarding LV dysfunction in atrial fibrillation. NYHA class 3 symptoms. Patient is not currently on diuretic therapy. He is not on guideline directed medical therapy the given intermittent relative hypotension management options may be limited. 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 Ischemic workup as an outpatient. Unable to achieve rhythm control due to left atrial appendage thrombus so rate control strategy must be employed. Plan for repeat JUAN guided cardioversion attempt after 4 weeks of systemic anticoagulation without interruption as discussed at length. Tolerating addition of Entresto 12/13 mg twice daily thus far. Continue to monitor renal function electrolytes stable thus far. Tolerating increase in Entresto to 24/26 mg twice daily. Ideally would add Jardiance, spironolactone but unlikely he will tolerate this given his blood pressure although his relative stable at this time. Life vest pending. (3) Thrombus of left atrial appendage: Code(s): I51.3 - Intracardiac thrombosis, not elsewhere classified Status: Acute Assessment and Plan: Continue systemic anticoagulation with Xarelto 20 mg daily without interruption. (4) Elevated troponin: Code(s): R79.89 - Other specified abnormal findings of blood chemistry Status: Acute Assessment and Plan: Likely demand ischemia given LV dysfunction, atrial fibrillation with RVR. Cannot entirely exclude underlying CAD, ischemic workup as an outpatient. Subjective Date/time seen: Date of service: 07/03/23 17:08 Interval history: 62-year-old man with: Newly recognized atrial fib felt to be of recent onset. Also newly diagnosed cardiomyopathy by echo that was done yesterday. Patient is relatively comfortable today and offers no significant complaints IV diltiazem is running heart rate is in the 110 range. Transesophageal echocardiogram images were done this morning in anticipation of cardioversion. Unfortunately there is a very large thrombus in the left atrial appendage contraindicating any attempt at cardioversion at this time. Date of service 06/29/2023: Patient feeling better this morning. Had more shortness of breath with heart rate with AFib RVR more rapid 120 to 140s when diltiazem was discontinued. Upon re-initiation are better controlled symptoms significantly improved. He remains on IV diltiazem and oral metoprolol. Her rate better controlled. He still notes some exertional dyspnea but no dizziness, chest pain. Tolerating medications. Mother bedside. Discussed at great length. All questions answered to their satisfaction. Explained plan of care in detail. Date of servi
--- NOTE | 2023-07-03 17:20 | PC.NURSE ---
Pt at 1230 was up walking around in room going to the bathroom and this nurse noticed HR was in 170s and was sustain at the time, pt was asymptomatic at the time, this nurse made Dr Lou aware and reviewed tele readings and stated to go ahead even though he did not want to do this to give x1 dose of Cardizem 30 mg PO tab shot acting release pt was given x1 dose and HR came down to the low 100s to 115s Dr Lou will make changes if medication was tolerated today.
[2023-07-04] VITALS (14 sets, daily range): BP systolic 90–110; BP diastolic 48–72; PULSE 48–108; RESP 18–20; TEMP 36.1–36.9; O2SAT 93–98
[2023-07-04] MEDS: dilTIAZem HCL 30 MG TABLET PO (04:18)
[2023-07-04] MEDS: dilTIAZem HCL CD 120 MG CAP.24HR PO (09:56)
[2023-07-04] MEDS: DIGOXIN 250 MCG TABLET PO (09:57)
[2023-07-04] MEDS: SACUBITRIL/VALSARTAN 24-26 MG TABLET 1 TAB PO ×2 (09:57→21:27)
[2023-07-04] MEDS: METOPROLOL SUCCINATE EXT REL 100 MG TABCR 200 MG PO (09:58)
--- NOTE | 2023-07-04 13:03 | PM.PNCARD ---
Progress Note: A&P Assessment and Plan (1) Atrial fibrillation with RVR: Code(s): I48.91 - Unspecified atrial fibrillation Status: Acute Assessment and Plan: Atrial fibrillation with RVR refractory to medical therapy. -Heart rate reasonably controlled with Toprol XL 200 mg daily, Digoxin 0.25 mg daily and most recent addition of diltiazem. As discussed at length previously while we tended to avoid diltiazem, his heart rate was unacceptably elevated per day given severe LV dysfunction and concern for tachycardia induced cardiomyopathy. Given relative risks and benefits at least for short term favorable to initiate diltiazem as his heart rate is much better controlled. Attempts to use for short period time as possible remains important yet overall heart rate control at this point is even greater. -Continue systemic anticoagulation with Xarelto 20 mg daily. -Unable to proceed with JUAN guided cardioversion due to the left atrial appendage thrombus. Patient is aware of the stroke risk associated. -Outpatient digoxin level in 1 week. -provided heart rate and BP remained stable and he is relatively asymptomatic stable for discharge from cardiac perspective pending life vest placement. Discussed at length relative benefits and limitations in this regard. (2) Cardiomyopathy: Code(s): I42.9 - Cardiomyopathy, unspecified Status: Acute Assessment and Plan: Severe LV systolic dysfunction EF 15-20% currently compensated symptomatic regarding LV dysfunction in atrial fibrillation. NYHA class 3 symptoms. Patient is not currently on diuretic therapy. He is not on guideline directed medical therapy the given intermittent relative hypotension management options may be limited. 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 Ischemic workup as an outpatient. Unable to achieve rhythm control due to left atrial appendage thrombus so rate control strategy must be employed. Plan for repeat JUAN guided cardioversion attempt after 4 weeks of systemic anticoagulation without interruption as discussed at length. Tolerating addition of Entresto 12/13 mg twice daily thus far. Continue to monitor renal function electrolytes stable thus far. Tolerating Entresto 24/26 mg twice daily. Ideally would add Jardiance, spironolactone but unlikely he will tolerate this given his blood pressure although his relative stable at this time. Life vest pending. (3) Thrombus of left atrial appendage: Code(s): I51.3 - Intracardiac thrombosis, not elsewhere classified Status: Acute Assessment and Plan: Continue systemic anticoagulation with Xarelto 20 mg daily without interruption. Unable to proceed with JUAN guided cardioversion to monitor 4 weeks anticoagulation with repeat assessment anticipated. (4) Elevated troponin: Code(s): R79.89 - Other specified abnormal findings of blood chemistry Status: Acute Assessment and Plan: Likely demand ischemia given LV dysfunction, atrial fibrillation with RVR. Cannot entirely exclude underlying CAD, ischemic workup as an outpatient. Subjective Date/time seen: Date of service: 07/04/23 13:03 Interval history: 62-year-old man with: Newly recognized atrial fib felt to be of recent onset. Also newly diagnosed cardiomyopathy by echo that was done yesterday. Patient is relatively comfortable today and offers no significant complaints IV diltiazem is running heart rate is in the 110 range. Transesophageal echocardiogram images were done this morning in anticipation of cardioversion. Unfortunately there is a very large thrombus in the left atrial appendage contraindicating any attempt at cardioversion at this time. Date of service 06/29/2023: Patient feeling better this morning. Had more shortness of breath with heart rate with AFib RVR more rapid 120 to 140s when diltiazem was discontinued. Upon re-initiation are better
--- NOTE | 2023-07-04 16:17 | P.DS_ITS ---
DS: Admitting Diagnosis Discharge Date 07/04/23 DS: Discharge Diagnosis Discharge Diagnosis (1) Atrial fibrillation with RVR: Code(s): I48.91 - Unspecified atrial fibrillation Status: Acute (2) Cardiomyopathy: Code(s): I42.9 - Cardiomyopathy, unspecified Status: Acute (3) Elevated troponin: Code(s): R79.89 - Other specified abnormal findings of blood chemistry Status: Acute (4) Thrombus of left atrial appendage: Code(s): I51.3 - Intracardiac thrombosis, not elsewhere classified Status: Acute DS: Summary Time Spent with Patient Time attestation: Total time spent providing and/or coordinating discharge services: Exam Narrative: AF 98.0 103/84 104 18 96% ra Gen - NARD Chest -decreased breath sounds in the right base otherwise clear. CV -irregular irregular. Tachycardic.Telemetry showing AFib with RVR with heart rate around 105. Abd - Soft, NT/ND, Positive BS Ext - No pedal edema Neuro - Alert and oriented. Nonfocal exam. Psych - Nml mood and affect Skin - Warm and dry Discharge Plan Discharge Consulting providers: Maycol Huizar; Stacia Block; Raymundo Myers Discharge Medications: No Action No Home Medications Date of admission: 06/30/23 14:31 Primary Care Provider: PHYSICIAN,PERSONALIZED LIVING ASSISTANT Admitting Provider: Madonna Jones Attending physician on admission: Madonna Jones Condition: Serious
--- NOTE | 2023-07-04 18:30 | PM.DS ---
DS: Admitting Diagnosis Discharge Date 07/04/23 Admitting Diagnosis Shortnes of breath DS: Discharge Diagnosis Discharge Diagnosis (1) Atrial fibrillation with RVR: Code(s): I48.91 - Unspecified atrial fibrillation Status: Acute (2) Cardiomyopathy: Code(s): I42.9 - Cardiomyopathy, unspecified Status: Acute (3) Elevated troponin: Code(s): R79.89 - Other specified abnormal findings of blood chemistry Status: Acute (4) Thrombus of left atrial appendage: Code(s): I51.3 - Intracardiac thrombosis, not elsewhere classified Status: Acute DS: Summary Hospital Course Reason for hospitalization: 62yo healthy male here for SOB and chest pain and found to have new onset AFib and CMP. Plesae see H&P for details Hospital Course: Patient presents with shortness of breath and intermittent chest pain and found to be tachycardic with new onset AFib/RVR. D-dimer elevated.? CTA Ch/Abd/Pelvis showing no PE but did show minimal bibasilar pulmonary edema and small bilateral pleural effusions.? Doppler negative for DVT. TSH was normal. He was started on diltiazem IV.? Metoprolol succinate added.? Xarelto started. Cardiology followed and appreciate their input. Metoprolol advance and ultimately digoxin had to be added.? Able to be weaned off of diltiazem IV. Echo showed EF of 15-20% with abnormal diastolic function and reduced RV systolic function.? He has mild valvular disease. Heart rate remained poorly controlled. JUAN was ordered for possible cardioversion but this showed dilated left atrium with large clot in the left atrial appendage so cardioversion was aborted. Plan is for rate control pain. Oral diltiazem added. Cardiomyopathy possibly related to poorly controlled heart rate. BNP 6630. CXR clear on admission. BP soft but tolerated Entresto and Toprol XL. LifeVest ordered. He had elevated troponin felt related to AFib/RVR. EKG showing anterolateral T wave inversion concerning for ischemia. Plan for ischemic evaluation as outpatient. Patient overall did well and was able to be discharged home on 07/04/23 Status at Discharge Cognitive/behavioral status at discharge: stable Time Spent with Patient Time attestation: Total time spent providing and/or coordinating discharge services: 38 minutes Time spent: Greater than 30 minutes Exam Narrative: AF ? 97.9 110/48 88 18 98% ra Gen - NARD Chest - CTA bilaterally. nml RR CV -irregular irregular.?Telemetry showing AFib with controlled rate Abd - Soft, NT/ND, Positive BS Ext - No pedal edema Psych - Nml mood and affect Skin - Warm and dry Discharge Plan Discharge Attending physician on discharge: Olu Vazquez Consulting providers: Maycol Huizar; Stacia Block; Raymundo Myers Discharging Clinician: Olu Vazquez Anticipated Discharge Date/Time: 07/04/23 18:39 Patient Disposition: Home, Self-Care Activity: no straining Diet: heart healthy Discharge Instructions: Wear the Lifevest at all times. Okay to remove for hygiene. Take precautions to avoid falls. Rise slowly from a lying or sitting position. Pause before standing or walking. Check daily morning weights after voiding. Call your doctor if you gain more than 3 lb in 2 days or 5 lb in 1 week. Contact your doctor or call 911 and come to the Emergency Room if you have increasing shortness of breath, lightheadedness with standing or other worrisome symptoms. Avoid NSAIDs (ibuprofen, naproxen, Aleve). Tylenol is safe to take. Follow-up with your primary care provider in 1-2 weeks. Please call for appointment. Follow-up with Cardiology in 1 week. Please call for an appointment. Thank you for using [facility] for your health care needs. Patient Instructions: Antibiotic Form Stand Alone Forms: General Discharge Information Follow-up/Referrals: Aleksandr Vicente MD [Physician] - Call for Appointment Maycol Huizar MD [Physician]
[2023-07-04] MEDS: RIVAROXABAN 20 MG TABLET PO (18:38)
--- NOTE | 2023-07-04 21:12 | PC.NURSE ---
Notified Dr. Delgado of BP 90/40, plan of [employer] inside account representative arriving to place life vest. Hospitalist plans to discharge once life vest is on. Inquired if parameters were needed with Entresto r/t lower blood pressure.
--- NOTE | 2023-08-07 13:02 | PN_ITS ---
This report was moved to the correct visit on 08/09/2023. The original report was signed by Mateo Vazquez II, MD on 08/07/23 1302. Anes - Initial Pre Proc Eval Procedure: Operation Date: 08/12/23 08:30 Proposed Procedures p Electrical Cardioversion - Valdo Meyer MD Date/Time: 08/07/23 13:01 Surgeon: Valdo Meyer MD Pre Op Diagnosis: irregular rhythm Patient Data Age: 62 Gender: M Height: Weight: Allergies Allergy/AdvReac Type Severity Reaction Status Date / Time No Known Allergies Allergy Mild Verified 06/27/23 08:06 Home Medications Medication Instructions Recorded Confirmed Type digoxin 250 mcg (0.25 mg) tablet 250 mcg PO QAM #30 tabs 07/04/23 Rx (Digitek) diltiazem HCl 120 mg capsule,24 120 mg PO QAM #30 caps 07/04/23 Rx hr,extended release metoprolol succinate 100 mg 200 mg PO QAM #60 tabs 07/04/23 Rx tablet,extended release 24 hr (Toprol XL) rivaroxaban 20 mg tablet (Xarelto) 20 mg PO DAILY@1700 #30 tabs 07/04/23 Rx sacubitril 24 mg-valsartan 26 mg 1 tablet PO Q12HR #60 tabs 07/04/23 Rx tablet (Entresto) Patient hx anesthesia problems: none Family hx anesthesia problems: none Results Review: All pre-operative results and documents have been reviewed as part of the pre- operative evaluation. [facility] Family History Family History Father Diabetes mellitus Social History Social History Smoking packs per day: 1 Smoking cigarettes per day: 20.0 Years smoked: 20 Smoking pack-years: 20.00 Smoking status: Former smoker Alcohol intake: former Substance use: former Substance use type: marijuana Last use: 04/25/23 Do You Feel Safe in your Home?: Yes Lack of Transportation: No Lack of Food: Never True Current Housing: I Have Housing Concerned About Future Housing: No Difficulty Paying Gas/Electric Bills: No Difficulty Paying for Meds: No Currently Unemployed: No Education: High School Diploma/GED Difficulty w/ Childcare or Family Care: No Spiritual care concerns: No Anes - Eval Final PreProcedure Day of Procedure 08/07/23 13:01 Patient weight: normal Heart: irregular rhythm Emergent: no Anesthetic plan: proceed Anesthesia type and monitoring: general GIVS and standard monitoring Results Review: All pre-operative results and documents have been reviewed as part of the pre- operative evaluation. Informed Consent: The patient's anesthetic plan and its attendant risks and benefits were discussed with the patient/family/POA. Questions were solicited and answers provided to the satisfaction of the patient/family/POA. This report may have been done utilizing a voice recognition system. Attempts have been made to correct errors. However, there may be uncorrected grammatical, spelling, and recognition errors present. Report Initialized date/time: Mateo Vazquez II, MD 08/07/23 / 1302 Electronically signed by: Mateo Vazquez II, MD 08/07/23 1302 [facility]
== END 2023-07-04 23:18 | disposition home or self-care (01) | DRG 309 ==
LOC: ANHED 11:05 → ANHIMU 12:21
PROVIDERS: Internal Medicine; Specialist; Student in an Organized Health Care Education/Training Program; Admitting Provider Family Medicine; Emergency Provider Physician Assistant; Visit Provider Physician Assistant
PROC: B24BZZ4 Ultrasonography of Heart with Aorta, Transesophageal (ICD-10-PCS; CPT 93312; principal; 2023-06-28 09:00)
DX: I48.91 Unspecified atrial fibrillation (principal); I24.0 Acute coronary thrombosis not resulting in myocardial infarction; I42.9 Cardiomyopathy, unspecified; D72.829 Elevated white blood cell count, unspecified; Z87.891 Personal history of nicotine dependence; Z23 Encounter for immunization
CPT/HCPCS: 36415; 71045; 71275; 74177; 80048; 80053; 80061; 83036; 83735; 83880; 84443; 84484; 85025; 85380; 85610; 85730; 87426; 87804; 90471; 90686; 93005; 93306; 93312; 93320; 93325; 93970; 96365; 96366; 96376; 99215; 99285; A9270; G0008; G0378; G0463; J7040; Q9967

== ENCOUNTER 2023-07-12 09:38 | Outpatient (CLI) | payer BC, SELFPAY ==
[2023-07-12 10:28] LABS: Digoxin < 0.5 ng/mL (0.8-2.0)
== END 2023-07-12 09:39 | disposition home or self-care (01) ==
LOC: ANHLAB 09:40
PROVIDERS: Visit Provider Internal Medicine
DX: I42.9 Cardiomyopathy, unspecified (principal)
CPT/HCPCS: 36415; 80162

== ENCOUNTER 2023-08-09 14:19 | Outpatient (CLI) | payer BC, SELFPAY ==
[2023-08-09 15:31] LABS: Anion Gap 3 mmol/L (8-16); Blood Urea Nitrogen 23 mg/dL (9-20); Calcium 9.1 mg/dL (8.4-10.2); Carbon Dioxide 29 mmol/L (22-30); Chloride 105 mmol/L (98-107); Estimated Glomerular Filt Rate > 60; Glucose 91 mg/dL (65-110); Potassium 4.3 mmol/L (3.4-5.0); Sodium 137 mmol/L (137-145)
== END 2023-08-09 14:20 | disposition home or self-care (01) ==
PROVIDERS: Visit Provider Specialist
DX: I48.91 Unspecified atrial fibrillation (principal); I42.0 Dilated cardiomyopathy
CPT/HCPCS: 36415; 80048

== ENCOUNTER 2023-08-12 01:15 | Day surgery (SDC) | payer BC, SELFPAY ==
--- NOTE | 2023-08-07 13:01 | P.PNAN_ITS ---
Anes - Initial Pre Proc Eval Procedure: Operation Date: 08/12/23 08:30 Proposed Procedures p Electrical Cardioversion - Valdo Meyer MD Date/Time: 08/07/23 13:01 Surgeon: Valdo Meyer MD Pre Op Diagnosis: irregular rhythm Patient Data Age: 62 Gender: M Height: Weight: Allergies Allergy/AdvReac Type Severity Reaction Status Date / Time No Known Allergies Allergy Mild Verified 06/27/23 08:06 Home Medications Medication Instructions Recorded Confirmed Type digoxin 250 mcg (0.25 mg) tablet 250 mcg PO QAM #30 tabs 07/04/23 Rx (Digitek) diltiazem HCl 120 mg capsule,24 120 mg PO QAM #30 caps 07/04/23 Rx hr,extended release metoprolol succinate 100 mg 200 mg PO QAM #60 tabs 07/04/23 Rx tablet,extended release 24 hr (Toprol XL) rivaroxaban 20 mg tablet (Xarelto) 20 mg PO DAILY@1700 #30 tabs 07/04/23 Rx sacubitril 24 mg-valsartan 26 mg 1 tablet PO Q12HR #60 tabs 07/04/23 Rx tablet (Entresto) Patient hx anesthesia problems: none Family hx anesthesia problems: none Results Review: All pre-operative results and documents have been reviewed as part of the pre- operative evaluation. [facility] Family History Family History Father Diabetes mellitus Social History Social History Smoking packs per day: 1 Smoking cigarettes per day: 20.0 Years smoked: 20 Smoking pack-years: 20.00 Smoking status: Former smoker Alcohol intake: former Substance use: former Substance use type: marijuana Last use: 04/25/23 Do You Feel Safe in your Home?: Yes Lack of Transportation: No Lack of Food: Never True Current Housing: I Have Housing Concerned About Future Housing: No Difficulty Paying Gas/Electric Bills: No Difficulty Paying for Meds: No Currently Unemployed: No Education: High School Diploma/GED Difficulty w/ Childcare or Family Care: No Spiritual care concerns: No Anes - Eval Final PreProcedure Day of Procedure 08/07/23 13:01 Patient weight: normal Heart: irregular rhythm Emergent: no Anesthetic plan: proceed Anesthesia type and monitoring: general GIVS and standard monitoring Results Review: All pre-operative results and documents have been reviewed as part of the pre-operative evaluation. Informed Consent: The patient's anesthetic plan and its attendant risks and benefits were discussed with the patient/family/POA. Questions were solicited and answers provided to the satisfaction of the patient/family/POA.
[2023-08-09 16:10] VITALS: BMI 28.2
[2023-08-12] VITALS (13 sets, daily range): BP systolic 89–122; BP diastolic 45–89; PULSE 51–72; RESP 14–22; TEMP 37.1; O2SAT 95–100; BMI 29.0
--- NOTE | 2023-08-12 07:00 | ECG_ITS ---
Measurements Intervals Vian Rate: 60 P: 35 VT: 146 QRS: -38 QRSD: 96 T: 177 QT: 444 QTc: 446 Interpretive Statements SINUS RHYTHM VENTRICULAR PREMATURE COMPLEX LEFT AXIS DEVIATION CANNOT RULE OUT SEPTAL INFARCT, AGE INDETERMINATE CONSIDER INFERIOR INFARCT, AGE INDETERMINATE ST-T WAVE ABNORMALITY IN ANTEROLATERAL LEADS- CONSIDER ISCHEMIA ABNORMAL ECG COMPARED TO ECG 06/28/2023 08:56:05 SINUS RHYTHM NOW PRESENT LEFT-AXIS DEVIATION NOW PRESENT Electronically Signed On 08-12-2023 8:55:43 CDT by Beni Puentes D.O.
[2023-08-12 07:48] LABS: Anion Gap 3 mmol/L (8-16); Blood Urea Nitrogen 18 mg/dL (9-20); Calcium 8.9 mg/dL (8.4-10.2); Carbon Dioxide 26 mmol/L (22-30); Chloride 107 mmol/L (98-107); Estimated CRCL calculation 78 ml/min; Estimated Glomerular Filt Rate > 60; Glucose 106 mg/dL (65-110); Potassium 4.4 mmol/L (3.4-5.0); Sodium 136 mmol/L (137-145)
--- NOTE | 2023-08-12 08:25 | WPDMODSED ---
Moderate Sedation Note-Pt Data Patient Data Diagnosis: Persistent atrial fibrillation Dilated cardiomyopathy Present Complaint: No complaints this morning Procedure to be performed/Plan: DC cardioversion Allergies Allergy/AdvReac Type Severity Reaction Status Date / Time No Known Allergies Allergy Mild Verified 08/12/23 07:27 Home Medications Medication Instructions Recorded Confirmed Type digoxin 250 mcg (0.25 mg) tablet 250 mcg PO QAM #30 tabs 07/04/23 08/12/23 Rx (Digitek) metoprolol succinate 100 mg 200 mg PO QAM #60 tabs 07/04/23 08/12/23 Rx tablet,extended release 24 hr (Toprol XL) rivaroxaban 20 mg tablet (Xarelto) 20 mg PO DAILY@1700 #30 tabs 07/04/23 08/12/23 Rx diltiazem HCl 120 mg capsule,24 120 mg PO DAILY 08/09/23 08/12/23 History hr,extended release (Tiadylt ER) sacubitril 49 mg-valsartan 51 mg 1 tablet PO BID 08/09/23 08/12/23 History tablet (Entresto) Current Medications: Active Medications Sodium Chloride (Normal Saline Iv) 1,000 mls @ 30 mls/hr IV CONT .Q24H GIANNA Sedation/Anesthesia: No previous sedation/anesthesia problems (including family history). [facility] Family History Family History Father Diabetes mellitus Social History Social History Smoking packs per day: 1 Smoking cigarettes per day: 20.0 Years smoked: 12 Smoking pack-years: 12.00 Smoking status: Former smoker Tobacco type: cigarettes Alcohol intake: never Substance use: never Substance use type: does not use Last use: 04/25/23 Do You Feel Safe in your Home?: Yes Lack of Transportation: No Lack of Food: Never True Current Housing: I Have Housing Concerned About Future Housing: No Difficulty Paying Gas/Electric Bills: No Difficulty Paying for Meds: No Currently Unemployed: No Education: High School Diploma/GED Difficulty w/ Childcare or Family Care: No Living arrangements: with family Spiritual care concerns: No Mod Sed Physical Exam Physical Exam Pre Procedural Exam: Normal: Appearance, Neck, Throat, Airway, Lungs, Heart Rate, Neuro Exam and Extremities and Variation: Heart Size (PMI displaced laterally) and Heart Rhythm (Irregularly irregular) Hours since solid foods: 12 Hours since liquid intake: 12 Mallampati Classification: class II Internal Medicine - PN: Obj Da Vital Signs Vital Signs: Vital Signs - 24 hr 08/12/23 07:35 Temperature 37.1 C Pulse Rate 67 Respiratory Rate 16 Blood Pressure 109/75 Pulse Oximetry 97 Oxygen Delivery Room Air Meds/Results Medications: Active Medications Generic Name Dose Route Start Last Admin Trade Name Freq PRN Reason Stop Dose Admin Sodium Chloride 1,000 mls @ 30 mls/hr 08/12/23 07:00 Normal Saline Iv IV CONT .Q24H GIANNA Labs 08/12/23 07:25 Labs: Laboratory Results - last 24 hr 08/12/23 07:25 Sodium 136 L Potassium 4.4 Chloride 107 Carbon Dioxide 26 Anion Gap 3 L BUN 18 Creatinine 0.80 Estim Creat Clear Calc 78 Estimated GFR > 60 Glucose 106 Calcium 8.9 Magnesium 2.0 ASA Classification/Sedation ASA Classification/Sedation ASA Class: III Emergent: No Risks: Risks, benefits and alternatives explained and patient/family accepted plan for sedation. Patient re-evaluated immediately prior to sedation.
--- NOTE | 2023-08-12 08:36 | P.PCNCC_ITS ---
Cardiac Cath Procedure Note Date of procedure:: 08/12/23 Performing physician:: Valdo Meyer MD Indication:: Persistent atrial fibrillation Dilated cardiomyopathy Brief clinical history:: This is a 62-year-old man with recently diagnosed dilated cardiomyopathy and systolic heart failure. He has been placed on guideline directed medical therapy and has been doing well. He presented with atrial fibrillation of unknown chronicity as well. He has now been anticoagulated for 6 weeks and is readmitted today as an outpatient for attempted DC cardioversion. Cardioversion was delayed initially as transesophageal ECHO did demonstrate left atrial appendage thrombus. Procedure Procedure performed:: DC cardioversion Sedation/Medication given:: Intravenous propofol total dosage of 70 mg Access site:: Right upper extremity Estimated blood loss:: 0 Procedure note:: Patient was brought to the cardiac catheterization lab holding area in a postabsorptive state patches were placed in AP position and connected to the defibrillator which was synchronized 200 joules output. I elected to administer 1 mg of atropine prior to cardioverting him since his heart rate with atrial fib was in the 60s. He was then sedated with the propofol as described above and DC cardioverted using 200 joules x1 shock into sinus rhythm/sinus bradycardia with heart rate in the 55-60 beats per minute. Findings:: As above Conclusion:: Successful uncomplicated DC cardioversion terminating atrial fibrillation restoring sinus rhythm/sinus bradycardia using 200 joules x1 shock Diltiazem and digoxin will be discontinued now that he is back in sinus rhythm Valdo Meyer MD [facility]
--- NOTE | 2023-08-12 09:00 | ECG_ITS ---
Measurements Intervals [place] Rate: 65 P: AR: 0 QRS: -34 QRSD: 93 T: 211 QT: 418 QTc: 436 Interpretive Statements ATRIAL FIBRILLATION VENTRICULAR PREMATURE COMPLEX LEFT AXIS DEVIATION DELAYED PRECORDIAL R/S TRANSITION ST-T WAVE ABNORMALITY IN ANTEROLATERAL LEADS- CONSIDER ISCHEMIA ABNORMAL ECG COMPARED TO ECG 06/28/2023 08:56:05 LEFT-AXIS DEVIATION NOW PRESENT Electronically Signed On 08-12-2023 12:46:37 CDT by Beni Puentes D.O.
== END 2023-08-12 10:55 | disposition home or self-care (01) ==
PROVIDERS: Visit Provider Specialist
PROC: 5A2204Z Restoration of Cardiac Rhythm, Single (ICD-10-PCS; principal; 2023-08-12 08:30)
DX: I48.19 Other persistent atrial fibrillation (principal); I42.0 Dilated cardiomyopathy; I50.20 Unspecified systolic (congestive) heart failure; Z79.01 Long term (current) use of anticoagulants; Z87.891 Personal history of nicotine dependence
CPT/HCPCS: 36415; 80048; 83735; 92960; A9270; J0461; J2704; J7030

== ENCOUNTER 2023-09-23 01:31 | Day surgery (SDC) | payer BC, SELFPAY ==
[2023-09-20 14:46] VITALS: BMI 28.6
[2023-09-23] VITALS (19 sets, daily range): BP systolic 94–128; BP diastolic 62–87; PULSE 47–77; RESP 12–20; TEMP 37.1; O2SAT 94–97
[2023-09-23 07:30] LABS: Basophils Percent Auto 0.6 % (0.2-1.2); Eosinophils Absolute Auto 0.5 K/mm3 (0-0.3); Eosinophils Percent Auto 7.6 % (0-4.4); Hematocrit 45.4 % (42.0-52.0); Immature Granulocyte Absolute 0.02 K/mm3 (0.00-0.031); Immature Granulocyte Percent A 0.3 % (0-0.5); Lymphocytes Percent Auto 33.4 % (18.3-44.2); Mean Corpuscular Volume 87.6 fl (80-100); Mean Platelet Volume 10.3 fl (7.4-10.4); Monocytes Absolute Auto 0.5 K/mm3 (0.1-0.6); Monocytes Percent Auto 7.8 % (2.6-8.5); Neutrophils Absolute Auto 3.5 K/mm3 (1.3-6.7); Neutrophils Percent Auto 50.3 % (45.5-73.1); Platelet Count Result 206 k/mm3 (150-375); Red Blood Count 5.18 M/mm3 (4.6-6.20); Red Cell Distribution Width 13.3 % (11.5-14.5); White Blood Count 6.9 K/mm3 (4.5-10.0)
[2023-09-23 07:43] LABS: Anion Gap 5 mmol/L (4-12); Blood Urea Nitrogen 24 mg/dL (9-20); Carbon Dioxide 25 mmol/L (22-30); Chloride 106 mmol/L (98-107); Estimated CRCL calculation 70 ml/min; Estimated Glomerular Filt Rate > 60; Glucose 100 mg/dL (65-110); Sodium 136 mmol/L (137-145)
[2023-09-23 08:01] LABS: Prothrombin Time 13.2 Seconds (11.1-14.7)
--- NOTE | 2023-09-23 08:37 | WPDMODSED ---
Moderate Sedation Note-Pt Data Patient Data Diagnosis: Cardiomyopathy atrial fibrillation, currently in sinus rhythm following cardioversion Present Complaint: no complaints Procedure to be performed/Plan: left heart catheterization Allergies Allergy/AdvReac Type Severity Reaction Status Date / Time No Known Allergies Allergy Mild Verified 09/20/23 14:54 Home Medications Medication Instructions Recorded Confirmed Type rivaroxaban 20 mg tablet (Xarelto) 20 mg PO DAILY@1700 #30 tabs 07/04/23 09/20/23 Rx sacubitril 49 mg-valsartan 51 mg 1 tablet PO BID 08/09/23 09/20/23 History tablet (Entresto) metoprolol succinate 100 mg 100 mg PO DAILY 30 days #30 tabs 08/12/23 09/20/23 Rx tablet,extended release 24 hr Current Medications: Active Medications Sodium Chloride (Normal Saline Iv) 500 mls @ 100 mls/hr IV CONT .Q5H GIANNA Sedation/Anesthesia: No previous sedation/anesthesia problems (including family history). [facility] Family History Family History Father Diabetes mellitus Social History Social History Smoking packs per day: 1 Smoking cigarettes per day: 20.0 Years smoked: 12 Smoking pack-years: 12.00 Smoking status: Former smoker Tobacco type: cigarettes Alcohol intake: never Substance use: never Substance use type: does not use Last use: 04/25/23 Do You Feel Safe in your Home?: Yes Lack of Transportation: No Lack of Food: Never True Current Housing: I Have Housing Concerned About Future Housing: No Difficulty Paying Gas/Electric Bills: No Difficulty Paying for Meds: No Currently Unemployed: No Education: High School Diploma/GED Difficulty w/ Childcare or Family Care: No Living arrangements: with family Spiritual care concerns: No Mod Sed Physical Exam Physical Exam Pre Procedural Exam: Normal: Appearance, Neck, Throat, Airway, Lungs, Heart Rate, Heart Rhythm, Neuro Exam and Extremities and Variation: Heart Size ( PMI laterally displaced) Hours since solid foods: 12 Hours since liquid intake: 12 Mallampati Classification: class II Internal Medicine - PN: Obj Da Vital Signs Vital Signs: Vital Signs - 24 hr 09/23/23 07:23 Temperature 37.1 C Pulse Rate 77 Respiratory Rate 20 Blood Pressure 126/87 Pulse Oximetry 95 Oxygen Delivery Room Air Meds/Results Medications: Active Medications Generic Name Dose Route Start Last Admin Trade Name Diana PRN Reason Stop Dose Admin Sodium Chloride 500 mls @ 100 mls/hr 09/23/23 07:00 Normal Saline Iv IV CONT .Q5H GIANNA Labs 09/23/23 07:20 09/23/23 07:20 Labs: Laboratory Results - last 24 hr 09/23/23 07:20 WBC 6.9 RBC 5.18 Hgb 15.0 Hct 45.4 MCV 87.6 MCH 29.0 MCHC 33.0 RDW 13.3 Plt Count 206 MPV 10.3 Immature Gran % (Auto) 0.3 Neut % (Auto) 50.3 Lymph % (Auto) 33.4 [place] % (Auto) 7.8 Eos % (Auto) 7.6 H Baso % (Auto) 0.6 Lymph # (Auto) 2.30 [place] # (Auto) 0.5 Eos # (Auto) 0.5 H Baso # (Auto) 0.0 Abs Immat Gran (auto) 0.02 Absolute Neuts (auto) 3.5 Absolute Nucleated RBC 0.000 Nucleated RBC % 0.0 PT 13.2 INR 1.0 Sodium 136 L Potassium 4.0 Chloride 106 Carbon Dioxide 25 Anion Gap 5 BUN 24 H Creatinine 0.90 Estim Creat Clear Calc 70 Estimated GFR > 60 Glucose 100 Calcium 9.0 ASA Classification/Sedation ASA Classification/Sedation ASA Class: III Emergent: No Risks: Risks, benefits and alternatives explained and patient/family accepted plan for sedation. Patient re-evaluated immediately prior to sedation.
--- NOTE | 2023-09-23 09:05 | P.PCNCC_ITS ---
Cardiac Cath Procedure Note Date of procedure:: 09/23/23 Performing physician:: Valdo Meyer MD Indication:: dilated cardiomyopathy atrial fibrillation, currently in sinus rhythm Brief clinical history:: this is a 62-year-old man who was found to have atrial fibrillation and severe left ventricular systolic dysfunction in July of this year. He was treated medically and improved nicely. After anticoagulation for 4 weeks he was cardioverted electrically into sinus rhythm. He remains on metoprolol and Entresto. Xarelto has been discontinued prior to left heart catheterization which is scheduled for this morning. He does not have a history of coronary disease nor is he reporting any ischemic symptoms. Procedure Procedure performed:: Coronary angiography left ventriculography Sedation/Medication given:: fentanyl 50 mg Versed 2 mg case start time 8:45 a.m. case end time 9:01 a.m. sedation provided by Emilie Lomeli RN, trained observer Access site:: right femoral artery Estimated blood loss:: 20 cc Procedure note:: patient was brought to the cardiac catheterization lab in the postabsorptive state right femoral triangle was prepped and draped in the usual fashion. Anesthesia was provided with 1% lidocaine infiltrated locally. Using the modified Seldinger technique a 5 [place] sheath was placed into the femoral artery and then left heart catheterization was carried out. I used 5 [place] FL4 catheter to engage and inject the left coronary artery and a 5 [place] JR4 catheter to engage and inject the right coronary artery. A 5 [place] angled pigtail catheter was used to perform left ventriculography and to measure left- sided hemodynamics. Following this the case was terminated. An angiogram was performed to the femoral artery through the sheath and the decision was made to have the catheter removed with direct manual compression. The patient tolerated the procedure well there were no apparent complications and there was no evidence of groin hematoma when he left the cardiac catheterization lab. Findings:: Hemodynamics: Central aortic pressure is 100 over 58 left ventricle 100/3 end-diastolic pressure 8 there is no gradient on pullback across the aortic valve. Left ventricle: The LV is of normal size. The global contractility is mildly reduced with an ejection fraction of approximately 40%. The study shows no regional wall motion abnormalities. The left main coronary artery is widely patent the left anterior descending is a large caliber artery extending down to the apex. The LAD its diagonal septal branches are angiographically normal. The circumflex is a moderate caliber artery giving rise to the marginal branches. The circumflex system is smooth and angiographically normal. The right coronary artery is large in caliber and dominant to the posterior circulation. There is some proximal tortuosity in the 1st portion of the RCA but angiographically the vessel is free of disease. Conclusion:: 1. Right coronary dominant circulation with no angiographic evidence of coronary artery disease 2. mild LV systolic dysfunction but much better than 2 months ago when ejection fraction was 10-15%. 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
== END 2023-09-23 15:15 | disposition home or self-care (01) ==
PROVIDERS: PCP Nurse Practitioner Family; Visit Provider Specialist
PROC: 4A023N7 Measurement of Cardiac Sampling and Pressure, Left Heart, Percutaneous Approach (ICD-10-PCS; CPT 93452; principal; 2023-09-23 08:30)
DX: I42.0 Dilated cardiomyopathy (principal); R00.1 Bradycardia, unspecified; Z79.01 Long term (current) use of anticoagulants; Z95.5 Presence of coronary angioplasty implant and graft; Z87.891 Personal history of nicotine dependence
CPT/HCPCS: 36415; 80048; 85025; 85610; 93458; C1887; C1894; J0461; J1644; J2250; J3010; J7040